=== PATIENT | female | born 1975 | race Caucasian/White ===

== ENCOUNTER 2016-09-10 13:06 | Emergency (ER) | payer MEDICAID ==
[2016-09-10 13:13] VITALS: BP 134/69
[2016-09-10 13:35] LABS: PH,URINE 5.5 PH (5.0-7.5)
--- NOTE | 2016-09-10 13:38 | ED Physician Documentation ---
PD HPI FEMALE - Stated complaint Stated Complaint: FEMALE - Chief complaint Chief Complaint: Abd Pain - History obtained from History obtained from: Patient - History of Present Illness Timing - onset: How many days ago (2) Timing - duration: Days (2) Timing - details: Gradual onset, Still present Associated symptoms: Back pain, Dysuria, Urinary frequency Contributing factors: No: Similar symptoms before: Diagnosis (UTI) Recently seen: Not recently seen - Additional information Additional information: healthy 40 y/o female with urinary frequency and dysuria. Review of Systems Constitutional: denies: Fever Eyes: denies: Decreased vision Ears: denies: Ear pain Nose: denies: Congestion Throat: denies: Sore throat Respiratory: denies: Cough GI: denies: Abdominal Pain, Nausea, Vomiting : reports: Dysuria, Frequency Musculoskeletal: reports: Back pain PD PAST MEDICAL HISTORY - Past Medical History Past Medical History: Yes Musculoskeletal: Scoliosis Other Past Medical History: kidney infection - Past Surgical History Past Surgical History: Yes Ortho: Spine surgery - Present Medications Home Medications: Ambulatory Orders Medication Instructions Recorded Confirmed Phenazopyridine [Pyridium] 200 mg PO TID #10 tablet 09/10/16 Sulfamethoxazole/Trimethoprim 1 each PO BID #10 tablet 09/10/16 [Sulfamethoxazole-Tmp Ds Tablet] - Allergies Allergies/Adverse Reactions: Allergies Allergy/AdvReac Type Severity Reaction Status Date / Time No Known Drug Allergies Allergy Verified 09/10/16 13:44 - Social History Does the pt smoke?: No Smoking Status: Never smoker Does the pt drink ETOH?: Yes Does the pt have substance abuse?: No - Immunizations Immunizations are current?: Yes - POLST Patient has POLST: No PD ED PE NORMAL - Vitals Vital signs reviewed: Yes (normal ) - General General: Alert and oriented X 3, No acute distress, Well developed/nourished - HEENT HEENT: Atraumatic, PERRL - Respiratory Respiratory: No respiratory distress - Back Back: No CVA TTP, No spinal TTP - Derm Derm: Normal color, Warm and dry, No rash - Extremities Extremities: No deformity, No edema - Neuro Neuro: No motor deficit, No sensory deficit - Psych Psych: Normal mood, Normal affect Results - Vitals Vitals: Vital Signs - 24 hr 09/10/16 13:09 Temperature 36.6 C Heart Rate 95 Respiratory 18 Rate Blood Pressure 134/69 H O2 Saturation 100 Oxygen O2 Source Room air - Labs Labs: Laboratory Tests 09/10/16 09/10/16 13:17 13:17 Urine Color YELLOW Urine Clarity CLOUDY Urine pH 5.5 Ur Specific [place] >=1.030 H >=1.030 H Urine Protein 30 H Urine Glucose (UA) NEGATIVE Urine Ketones NEGATIVE Urine Occult Blood LARGE H Urine Nitrite NEGATIVE Urine Bilirubin NEGATIVE Urine Urobilinogen 0.2 (NORMAL) Ur Leukocyte Esterase SMALL H Urine RBC TNTC H Urine WBC >25 H Ur Squamous Epith Cells MOD Squamous H Urine Bacteria Moderate H Urine Mucus Moderate Strands Ur Microscopic Review INDICATED Urine Culture Comments NOT INDICATED Urine HCG, Qual NEGATIVE PD MEDICAL DECISION MAKING - ED course Complexity details: reviewed results, re-evaluated patient, considered differential, d/w patient ED course: 40 y/o female with a UTI without fever or vomiting does not have CVA tenderness Departure - Departure Disposition: 01 Home, Self Care Clinical Impression: Urinary tract infection Qualifiers: Urinary tract infection type: acute cystitis Hematuria presence: with hematuria Qualified Code(s): N30.01 - Acute cystitis with hematuria Instructions: ED UTI Cystitis Female Follow-Up: [facility] [Provider Group] Prescriptions: Phenazopyridine [Pyridium] 200 mg PO TID #10 tablet Sulfamethoxazole/Trimethoprim [Sulfamethoxazole-Tmp Ds Tablet] 1 each PO BID # 10 tablet Discharge Date/Time: 09/10/16 14:05
[2016-09-10 13:41] LABS: BILIRUBIN,URINE NEGATIVE (NEGATIVE); UA w/ MICROSCOPIC CHARGE YES
[2016-09-10 13:53] LABS: HCG UR QUAL NEGATIVE
[2016-09-10 13:54] LABS: UR CULTURE IF IND NOT INDICATED; WBC,URINE >25 /HPF (0-5)
== END 2016-09-10 14:05 | disposition home or self-care (01) ==
LOC: ED 13:06
DX: N30.01 Acute cystitis with hematuria (principal)
CPT/HCPCS: 81001; 81003; 81025; 87086; 99283

== ENCOUNTER 2017-02-06 11:31 | Outpatient (CLI) | payer MEDICAID ==
[2017-02-06 19:32] LABS: BASOPHILS % (AUTO) 0.7 %; EOSINOPHILS # (AUTO) 0.1 10^3/uL (0.0-0.7); EOSINOPHILS % (AUTO) 2.6 %; HCT - HEMATOCRIT 42.9 % (37.0-47.0); HGB - HEMOGLOBIN 14.2 g/dL (12.0-16.0); LYMPHOCYTES # (AUTO) 1.5 10^3/uL (1.5-3.5); LYMPHOCYTES % (AUTO) 40.7 %; MEAN CORPUSCULAR HGB CONC 33.1 g/dL (32.0-36.0); MEAN CORPUSCULAR VOLUME 93.9 fL (81.0-99.0); MEAN PLATELET VOLUME 9.2 fL (7.9-10.8); MONOCYTES # (AUTO) 0.3 10^3/uL (0.0-1.0); MONOCYTES % (AUTO) 7.8 %; NEUTROPHILS # (AUTO) 1.8 10^3/uL (1.5-6.6); NEUTROPHILS % (AUTO) 48.2 %; RED BLOOD COUNT 4.57 10^6/uL (4.20-5.40); RED CELL DISTRIBUTION WIDTH 12.6 % (12.0-15.0); UNCORRECTED WHITE BLOOD COUNT 3.7 x10^3/uL; WHITE BLOOD COUNT 3.7 x10^3/uL (4.8-10.8)
[2017-02-06 19:39] LABS: ALBUMIN/GLOBULIN RATIO 1.6 (1.0-2.2); BILIRUBIN,TOTAL 0.8 mg/dL (0.2-1.0); BUN - BLOOD UREA NITROGEN 12 mg/dL (6-20); CALCIUM 9.1 mg/dL (8.5-10.3); CARBON DIOXIDE - CO2 28 mmol/L (21-32); CHLORIDE 102 mmol/L (101-111); CHOL/HDL RATIO 3.3 (<4.4); CHOLESTEROL 209 mg/dL; CREATININE 0.7 mg/dL (0.4-1.0); GFR - MDRD 93 (>89); GLUCOSE 89 mg/dL (70-100); HDL CHOLESTEROL 64 mg/dL; SODIUM 137 mmol/L (135-145); TOTAL PROTEIN 7.4 g/dL (6.7-8.2); TRIGLYCERIDES 68 mg/dL; VLDL CHOLESTEROL 14 mg/dL
[2017-02-06 19:47] LABS: THYROID STIMULATING HORMONE 7.11 uIU/mL (0.34-5.60)
== END 2017-02-06 11:32 | disposition home or self-care (01) ==
LOC: LAB.N 11:31
PROVIDERS: ATTEND Nurse Practitioner Gerontology
DX: Z13.9 Encounter for screening, unspecified (principal)
CPT/HCPCS: 36415; 80053; 80061; 84439; 84443; 85025

== ENCOUNTER 2017-03-05 00:40 | Emergency (ER) | payer MEDICAID ==
[2017-03-05 01:16] LABS: BASOPHILS % (AUTO) 0.7 %; EOSINOPHILS # (AUTO) 0.3 10^3/uL (0.0-0.7); EOSINOPHILS % (AUTO) 4.2 %; HCT - HEMATOCRIT 41.1 % (37.0-47.0); LYMPHOCYTES # (AUTO) 3.1 10^3/uL (1.5-3.5); LYMPHOCYTES % (AUTO) 50.5 %; MEAN CORPUSCULAR HEMOGLOBIN 31.6 pg (27.0-31.0); MEAN CORPUSCULAR HGB CONC 34.1 g/dL (32.0-36.0); MEAN CORPUSCULAR VOLUME 92.9 fL (81.0-99.0); MEAN PLATELET VOLUME 8.3 fL (7.9-10.8); MONOCYTES # (AUTO) 0.8 10^3/uL (0.0-1.0); MONOCYTES % (AUTO) 12.3 %; NEUTROPHILS % (AUTO) 32.3 %; RED BLOOD COUNT 4.43 10^6/uL (4.20-5.40); RED CELL DISTRIBUTION WIDTH 12.5 % (12.0-15.0); UNCORRECTED WHITE BLOOD COUNT 6.1 x10^3/uL; WHITE BLOOD COUNT 6.1 x10^3/uL (4.8-10.8)
[2017-03-05 01:24] LABS: HCG UR QUAL NEGATIVE
[2017-03-05 01:26] LABS: BILIRUBIN,URINE NEGATIVE (NEGATIVE); UA CHARGE (STRIP ONLY) YES; UR CULTURE IF IND NOT INDICATED
[2017-03-05 01:26] LABS: ALBUMIN/GLOBULIN RATIO 1.3 (1.0-2.2); BILIRUBIN,TOTAL 0.9 mg/dL (0.2-1.0); CALCIUM 8.8 mg/dL (8.5-10.3); CREATININE 0.8 mg/dL (0.4-1.0); POTASSIUM 3.1 mmol/L (3.5-5.0); TOTAL PROTEIN 7.2 g/dL (6.7-8.2)
[2017-03-05] MEDS ORDERED: FAMOTIDINE 20 MG/2 ML VIAL IVP STA (01:31)
[2017-03-05] MEDS ORDERED: SODIUM CHLORIDE 0.9% 1,000 ML IV ONE (01:31)
[2017-03-05] MEDS ORDERED: ONDANSETRON 4 MG/2 ML VIAL IVP STA (01:31)
[2017-03-05] MEDS ORDERED: ONDANSETRON 4 MG/2 ML VIAL ONE (01:39)
[2017-03-05] MEDS ORDERED: FAMOTIDINE 20 MG/2 ML VIAL ONE (01:40)
[2017-03-05] MEDS ORDERED: DICYCLOMINE 10 MG CAPSULE PO STA (02:02)
[2017-03-05] MEDS ORDERED: LIDOCAINE VISCOUS 2% 15 ML UDC MM STA (02:02)
[2017-03-05] MEDS ORDERED: LIDOCAINE VISCOUS 2% 15 ML UDC MM ONE (02:13)
[2017-03-05] MEDS ORDERED: DICYCLOMINE 10 MG CAPSULE PO ONE (02:13)
--- NOTE | 2017-03-05 02:13 | ED Physician Documentation ---
PD HPI ABD PAIN - Stated complaint Stated Complaint: ABD PX - Chief complaint Chief Complaint: Abd Pain - History obtained from History obtained from: Patient - History of Present Illness Timing - onset: Today Timing - details: Abrupt onset, Still present Quality: Cramping, Aching Location: All over / everywhere, Epigastric Associated symptoms: No: Fever, Nausea, Vomiting, Diarrhea, Constipation Similar symptoms before: Has not had sx before Recently seen: Not recently seen - Additional information Additional information: Patient is a 41 year old female who is presenting to the emergency department for abdominal pain. patient states that she recently has been on antibiotics and just came back from [place]. Patient states that she was in bed when she developed abdominal pain. patient states that it started suddenly. Patient denies any other aggravating or alleviating factors. Patient states that she used to drink heavily but she slowed down about 8 months. ago. Review of Systems Constitutional: denies: Fever, Chills Eyes: denies: Decreased vision, Photophobia Ears: denies: Ear pain, Drainage/discharge Nose: denies: Rhinorrhea / runny nose, Congestion Throat: reports: Reviewed and negative Respiratory: denies: Dyspnea, Cough GI: reports: Abdominal Pain. denies: Abdominal Swelling, Nausea, Vomiting, Constipation, Diarrhea : denies: Dysuria, Frequency, Hesitancy, Hematuria, Discharge, Vaginal bleeding Skin: denies: Rash, Lesions, Abrasion (s) Musculoskeletal: denies: Neck pain, Back pain, Extremity pain Neurologic: denies: Generalized weakness, Focal weakness Immunocompromised: denies: Immunocompromised PD PAST MEDICAL HISTORY - Past Medical History Endocrine/Autoimmune: HyPOthyroidism Musculoskeletal: Scoliosis - Past Surgical History Past Surgical History: Yes Ortho: Spine surgery - Present Medications Home Medications: Ambulatory Orders Medication Instructions Recorded Confirmed Dicyclomine [Bentyl] 10 mg PO QID #20 capsule 03/05/17 Levothyroxine [Synthroid] 1 tab PO DAILY PM 03/05/17 03/05/17 Ondansetron Odt [Zofran] 4 mg TL Q6H PRN #14 tablet 03/05/17 - Allergies Allergies/Adverse Reactions: Allergies Allergy/AdvReac Type Severity Reaction Status Date / Time No Known Drug Allergies Allergy Verified 03/05/17 00:56 - Social History Does the pt smoke?: No Smoking Status: Never smoker Does the pt drink ETOH?: Yes Does the pt have substance abuse?: No - Immunizations Immunizations are current?: Yes - POLST Patient has POLST: No PD ED PE NORMAL - Vitals Vital signs reviewed: Yes - General General: Alert and oriented X 3, Well developed/nourished - HEENT HEENT: Atraumatic, Pharynx benign - Neck Neck: Supple, no meningeal sign - Cardiac Cardiac: RRR, No murmur - Respiratory Respiratory: No respiratory distress, Clear bilaterally - Abdomen Abdomen: Soft, Non distended - Derm Derm: Normal color, Warm and dry, No rash - Extremities Extremities: No deformity, No tenderness to palpate, No edema - Neuro Neuro: Alert and oriented X 3, No motor deficit, No sensory deficit - Psych Psych: Normal mood PD ED PE EXPANDED - HEENT HEENT: Dry mucous membranes - Abdomen Abdomen: Tender to palpation, Generalized/diffuse. No: Rebound, Guarding Results - Vitals Vitals: Vital Signs - 24 hr 03/05/17 00:54 Temperature 35.9 C L Heart Rate 69 Respiratory 22 Rate Blood Pressure 111/67 O2 Saturation 100 Oxygen O2 Source Room air - Labs Labs: Laboratory Tests 03/05/17 03/05/17 03/05/17 01:00 01:00 01:05 WBC 6.1 RBC 4.43 Hgb 14.0 Hct 41.1 MCV 92.9 MCH 31.6 H MCHC 34.1 RDW 12.5 Plt Count 179 MPV 8.3 Neut # 2.0 Lymph # 3.1 [place] # 0.8 Eos # 0.3 Baso # 0.0 Absolute Nucleated RBC 0.00 Nucleated RBC % 0.0 Sodium Potassium Chloride Carbon Dioxide Anion Gap BUN Creatinine Estimated GFR (MDRD) Glucose Calcium Total Bilirubin AST ALT Alkaline Phosphatase Total Protein Albumin Globulin Albumin/Globulin Ratio Lipase Urine Color YELLOW Urine Clarity CLEAR Urine pH 6.0 Ur Specific [place] 1.020 1.020 Urine Protein NEGATIVE Urine Glucose (UA) NEGATIVE Urine Ketones NEGATIVE Urine Occult Blood TRACE-LYSED Urine Nitrite NEGATIVE Urine Bilirubin NEGATIVE Urine Urobilinogen 0.2 (NORMAL) Ur Leukocyte Esterase NEGATIVE Ur Microscopic Review NOT INDICATED Urine Culture Comments NOT INDICATED Urine HCG, Qual NEGATIVE 03/05/17 01:05 WBC RBC Hgb Hct MCV MCH MCHC RDW Plt Count MPV Neut # Lymph # [place] # Eos # Baso # Absolute Nucleated RBC Nucleated RBC % Sodium 138 Potassium 3.1 L Chloride 102 Carbon Dioxide 27 Anion Gap 9.0 BUN 14 Creatinine 0.8 Estimated GFR (MDRD) 79 L Glucose 170 H Calcium 8.8 Total Bilirubin 0.9 AST 52 H ALT 31 Alkaline Phosphatase 73 Total Protein 7.2 Albumin 4.1 Globulin 3.1 Albumin/Globulin Ratio 1.3 Lipase 24 Urine Color Urine Clarity Urine pH Ur Specific [place] Urine Protein Urine Glucose (UA) Urine Ketones Urine Occult Blood Urine Nitrite Urine Bilirubin Urine Urobilinogen Ur Leukocyte Esterase Ur Microscopic Review Urine Culture Comments Urine HCG, Qual PD MEDICAL DECISION MAKING - ED course Complexity details: reviewed old records, reviewed results, re-evaluated patient , considered differential, d/w patient ED course: Patient was seen and examined at bedside. IV access was gained and labs were drawn. Patient was treated with zofran, pepcid and IV fluids. Patient responded well to the therapy. Patient's diagnostics were within normal limits. Patient was treated with bentyl, and viscous lidocaine. The risk/ benefit of CT was discussed with the patient and it was decided to not do it at this time. Patient required no further work up and was stable for discharge with outpatient follow up. Departure - Departure Disposition: Home, Self Care Condition: Good Instructions: ED Abdominal Pain Unkn Cause Follow-Up: Christine Buchanan ARNP [Primary Care Provider] - Within 3 Days Prescriptions: Dicyclomine [Bentyl] 10 mg PO QID #20 capsule Ondansetron Odt [Zofran] 4 mg TL Q6H PRN #14 tablet PRN Reason: Nausea / Vomiting Comments: Your diagnostics today were within normal limits. It is difficult to say what is causing your pain exactly. You should make sure you stay well hydrated. You can take zofran for nausea as needed and motrin, tylenol and bentyl for pain. You can also try maalox for gas, or acid reflux. If your symptoms persist for more than the next few days you should follow up with your pmd or return to the emergency department for further evaluation and care.
[2017-03-05 02:52] VITALS: BP 110/64
== END 2017-03-05 02:50 | disposition home or self-care (01) ==
LOC: ED 00:40
DX: R10.84 Generalized abdominal pain (principal); E03.9 Hypothyroidism, unspecified
CPT/HCPCS: 36415; 80053; 81003; 81025; 83690; 85025; 96361; 96374; 96375; 99284; A9270; 81001; 87086

== ENCOUNTER 2017-03-27 08:00 | Outpatient (CLI) | payer MEDICAID | END 2017-03-27 08:01 | disposition home or self-care (01) | LOC: LAB.N 08:00 | PROVIDERS: ATTEND Nurse Practitioner Gerontology | DX: E03.9 Hypothyroidism, unspecified (principal) | CPT/HCPCS: 36415; 84443 ==

== ENCOUNTER 2017-05-08 15:52 | Outpatient (CLI) | payer MEDICAID ==
[2017-05-08 19:17] LABS: BASOPHILS % (AUTO) 0.5 %; EOSINOPHILS # (AUTO) 0.1 10^3/uL (0.0-0.7); EOSINOPHILS % (AUTO) 1.3 %; HGB - HEMOGLOBIN 14.3 g/dL (12.0-16.0); LYMPHOCYTES # (AUTO) 1.6 10^3/uL (1.5-3.5); LYMPHOCYTES % (AUTO) 32.2 %; MEAN CORPUSCULAR HEMOGLOBIN 31.2 pg (27.0-31.0); MEAN CORPUSCULAR HGB CONC 33.6 g/dL (32.0-36.0); MEAN PLATELET VOLUME 9.2 fL (7.9-10.8); MONOCYTES # (AUTO) 0.4 10^3/uL (0.0-1.0); MONOCYTES % (AUTO) 7.3 %; NEUTROPHILS # (AUTO) 2.9 10^3/uL (1.5-6.6); NEUTROPHILS % (AUTO) 58.7 %; PLT - PLATELET COUNT 197 10^3/uL (130-450); RED BLOOD COUNT 4.57 10^6/uL (4.20-5.40); RED CELL DISTRIBUTION WIDTH 12.6 % (12.0-15.0); WHITE BLOOD COUNT 4.9 x10^3/uL (4.8-10.8)
[2017-05-08 19:29] LABS: ALBUMIN 4.4 g/dL (3.2-5.5); ALBUMIN/GLOBULIN RATIO 1.5 (1.0-2.2); BILIRUBIN,TOTAL 0.7 mg/dL (0.2-1.0); CALCIUM 8.7 mg/dL (8.5-10.3); CREATININE 0.8 mg/dL (0.4-1.0); TOTAL PROTEIN 7.4 g/dL (6.7-8.2)
[2017-05-08 19:39] LABS: FOLATE 15.58 ng/mL (5.90 - >24.8)
== END 2017-05-08 15:53 | disposition home or self-care (01) ==
LOC: LAB.N 15:52
PROVIDERS: ATTEND Nurse Practitioner Gerontology
DX: D64.9 Anemia, unspecified (principal); R53.83 Other fatigue; N39.0 Urinary tract infection, site not specified
CPT/HCPCS: 36415; 80053; 82607; 82728; 82746; 83540; 84466; 85025; 87086

== ENCOUNTER 2017-05-18 14:12 | Emergency (ER) | payer MEDICAID ==
[2017-05-18 14:42] LABS: BASOPHILS % (AUTO) 0.4 %; EOSINOPHILS # (AUTO) 0.1 10^3/uL (0.0-0.7); EOSINOPHILS % (AUTO) 1.4 %; HGB - HEMOGLOBIN 15.1 g/dL (12.0-16.0); LYMPHOCYTES # (AUTO) 2.3 10^3/uL (1.5-3.5); MEAN CORPUSCULAR HEMOGLOBIN 30.6 pg (27.0-31.0); MEAN CORPUSCULAR HGB CONC 33.3 g/dL (32.0-36.0); MEAN CORPUSCULAR VOLUME 91.7 fL (81.0-99.0); MEAN PLATELET VOLUME 8.4 fL (7.9-10.8); MONOCYTES # (AUTO) 0.4 10^3/uL (0.0-1.0); MONOCYTES % (AUTO) 7.1 %; NEUTROPHILS # (AUTO) 3.5 10^3/uL (1.5-6.6); NEUTROPHILS % (AUTO) 55.1 %; PLT - PLATELET COUNT 232 10^3/uL (130-450); RED BLOOD COUNT 4.95 10^6/uL (4.20-5.40); RED CELL DISTRIBUTION WIDTH 12.5 % (12.0-15.0); WHITE BLOOD COUNT 6.3 x10^3/uL (4.8-10.8)
[2017-05-18] MEDS ORDERED: SODIUM CHLORIDE 0.9% 1,000 ML IV ONE (14:45)
[2017-05-18] MEDS ORDERED: KETOROLAC 60 MG/2 ML VIAL IVP STA (14:45)
--- NOTE | 2017-05-18 14:50 | ED Physician Documentation ---
History of Present Illness - Stated complaint Stated Complaint: SIDE PX/TIGHTNESS IN SHOULDERS - Chief complaint Chief Complaint: Cardiac - History obtained from History obtained from: Patient - History of Present Illness Timing: How many weeks ago (several) Pain level max: 8 Pain level now: 8 Improved by: nothing Worsened by: movement, palpation - Additonal information Additional information: Patient is a 41-year-old female who presents to the emergency department with multiple complaints, the first is generalized malaise for the past several weeks. She has also been feeling pain in her bilateral flank which she attributes to kidney pain. She is being worked up by her doctor for this. Has had reportedly normal labs and a negative urine culture. Scheduled for a renal ultrasound tomorrow. She is also complaining of occasional tightness across her shoulders as well as palpitations. Has seen cardiology and had a Holter monitor, informed that she has premature ventricular contractions. She does have a history of drug abuse including methamphetamine abuse, last use was 4 years ago. She also states she quit drinking alcohol approximately 9 months ago. Review of Systems Ten Systems: 10 systems reviewed and negative Constitutional: denies: Fever, Chills Ears: denies: Ear pain Nose: denies: Rhinorrhea / runny nose, Congestion Cardiac: reports: Palpitations Respiratory: denies: Cough, Wheezing GI: denies: Nausea, Vomiting, Diarrhea : reports: Dysuria (states has occasional bladder pain) Skin: denies: Rash Musculoskeletal: denies: Neck pain, Back pain Neurologic: denies: Headache PD PAST MEDICAL HISTORY - Past Medical History Past Medical History: Yes Endocrine/Autoimmune: HyPOthyroidism Musculoskeletal: Scoliosis - Past Surgical History Past Surgical History: Yes Ortho: Spine surgery - Present Medications Home Medications: Ambulatory Orders Medication Instructions Recorded Confirmed Dicyclomine [Bentyl] 10 mg PO QID #20 capsule 03/05/17 Levothyroxine [Synthroid] 1 tab PO DAILY PM 03/05/17 03/05/17 Ondansetron Odt [Zofran] 4 mg TL Q6H PRN #14 tablet 03/05/17 Meloxicam [Mobic] 7.5 mg PO BID PRN #20 tablet 05/18/17 Oxycodone HCl 5 - 10 mg PO Q6H PRN #14 tablet 05/18/17 - Allergies Allergies/Adverse Reactions: Allergies Allergy/AdvReac Type Severity Reaction Status Date / Time acetaminophen [From Vicodin] Allergy Unknown Verified 05/18/17 14:28 hydrocodone [From Vicodin] Allergy lethargic Verified 05/18/17 14:29 paroxetine [From Paxil] AdvReac unresponsiv Verified 05/18/17 14:29 e - Social History Does the pt smoke?: No Smoking Status: Never smoker Does the pt drink ETOH?: No Does the pt have substance abuse?: Yes Substance Use and Type: Meth - Immunizations Immunizations are current?: Yes - POLST Patient has POLST: No PD ED PE NORMAL - Vitals Vital signs reviewed: Yes - General General: Alert and oriented X 3, No acute distress, Well developed/nourished, Other (appears anxious) - HEENT HEENT: PERRL - Neck Neck: Supple, no meningeal sign - Cardiac Cardiac: RRR, Strong equal pulses - Respiratory Respiratory: No respiratory distress, Clear bilaterally - Abdomen Abdomen: Soft, Non distended, Other (TTP RUQ, equivocal almonte's) - Back Back: No CVA TTP, No spinal TTP - Derm Derm: Warm and dry, No rash - Extremities Extremities: No edema, No calf tenderness / cord - Neuro Neuro: Alert and oriented X 3 - Psych Psych: Other (anxious) Results - Vitals Vitals: Vital Signs - 24 hr 05/18/17 05/18/17 05/18/17 14:19 15:52 17:02 Temperature 36.5 C 36.4 C L Heart Rate 128 H 79 66 Respiratory 22 12 16 Rate Blood Pressure 123/87 H 106/72 96/55 L O2 Saturation 100 100 100 Oxygen O2 Source Room air - EKG (time done) 1422 Rate: Rate (enter#) (109) Rhythm: Sinus tachycardia, Other (PVC) [place]: Normal Intervals: Normal RI QRS: Normal Ischemia: Normal ST segments - Labs Labs: Laboratory Tests 05/18/17 05/18/17 05/18/17 14:23 14:30 14:30 WBC 6.3 RBC 4.95 Hgb 15.1 Hct 45.4 MCV 91.7 MCH 30.6 MCHC 33.3 RDW 12.5 Plt Count 232 MPV 8.4 Neut # 3.5 Lymph # 2.3 [place] # 0.4 Eos # 0.1 Baso # 0.0 Absolute Nucleated RBC 0.00 Nucleated RBC % 0.0 Sodium 136 Potassium 4.1 Chloride 102 Carbon Dioxide 26 Anion Gap 8.0 BUN 11 Creatinine 0.6 Estimated GFR (MDRD) 111 Glucose 113 H POC Whole Bld Glucose 103 H Calcium 8.9 Phosphorus Magnesium Total Bilirubin 0.9 AST 23 ALT 19 Alkaline Phosphatase 51 Troponin I Total Protein 8.0 Albumin 4.6 Globulin 3.4 Albumin/Globulin Ratio 1.4 Lipase 24 Urine Color Urine Clarity Urine pH Ur Specific [place] Urine Protein Urine Glucose (UA) Urine Ketones Urine Occult Blood Urine Nitrite Urine Bilirubin Urine Urobilinogen Ur Leukocyte Esterase Ur Microscopic Review Urine Culture Comments Urine HCG, Qual Urine Opiates Screen Ur Oxycodone Screen Urine Methadone Screen Ur Propoxyphene Screen Ur Barbiturates Screen Ur Tricyclics Screen Ur Phencyclidine Scrn Ur Amphetamine Screen U Methamphetamines Scrn U Benzodiazepines Scrn Urine Cocaine Screen U Cannabinoids Screen Ethyl Alcohol 05/18/17 05/18/17 05/18/17 14:30 14:30 15:05 WBC RBC Hgb Hct MCV MCH MCHC RDW Plt Count MPV Neut # Lymph # [place] # Eos # Baso # Absolute Nucleated RBC Nucleated RBC % Sodium Potassium Chloride Carbon Dioxide Anion Gap BUN Creatinine Estimated GFR (MDRD) Glucose POC Whole Bld Glucose Calcium Phosphorus 3.5 Magnesium 1.9 Total Bilirubin AST ALT Alkaline Phosphatase Troponin I < 0.04 Total Protein Albumin Globulin Albumin/Globulin Ratio Lipase Urine Color YELLOW Urine Clarity CLEAR Urine pH 6.0 Ur Specific [place] <=1.005 Urine Protein NEGATIVE Urine Glucose (UA) NEGATIVE Urine Ketones NEGATIVE Urine Occult Blood NEGATIVE Urine Nitrite NEGATIVE Urine Bilirubin NEGATIVE Urine Urobilinogen 0.2 (NORMAL) Ur Leukocyte Esterase NEGATIVE Ur Microscopic Review NOT INDICATED Urine Culture Comments NOT INDICATED Urine HCG, Qual Urine Opiates Screen Ur Oxycodone Screen Urine Methadone Screen Ur Propoxyphene Screen Ur Barbiturates Screen Ur Tricyclics Screen Ur Phencyclidine Scrn Ur Amphetamine Screen U Methamphetamines Scrn U Benzodiazepines Scrn Urine Cocaine Screen U Cannabinoids Screen Ethyl Alcohol < 5.0 05/18/17 05/18/17 15:05 15:05 WBC RBC Hgb Hct MCV MCH MCHC RDW Plt Count MPV Neut # Lymph # [place] # Eos # Baso # Absolute Nucleated RBC Nucleated RBC % Sodium Potassium Chloride Carbon Dioxide Anion Gap BUN Creatinine Estimated GFR (MDRD) Glucose POC Whole Bld Glucose Calcium Phosphorus Magnesium Total Bilirubin AST ALT Alkaline Phosphatase Troponin I Total Protein Albumin Globulin Albumin/Globulin Ratio Lipase Urine Color Urine Clarity Urine pH Ur Specific [place] <1.005 Urine Protein Urine Glucose (UA) Urine Ketones Urine Occult Blood Urine Nitrite Urine Bilirubin Urine Urobilinogen Ur Leukocyte Esterase Ur Microscopic Review Urine Culture Comments Urine HCG, Qual NEGATIVE Urine Opiates Screen NEGATIVE Ur Oxycodone Screen NEGATIVE Urine Methadone Screen NEGATIVE Ur Propoxyphene Screen NEGATIVE Ur Barbiturates Screen NEGATIVE Ur Tricyclics Screen NEGATIVE Ur Phencyclidine Scrn NEGATIVE Ur Amphetamine Screen NEGATIVE U Methamphetamines Scrn NEGATIVE U Benzodiazepines Scrn NEGATIVE Urine Cocaine Screen NEGATIVE U Cannabinoids Screen NEGATIVE Ethyl Alcohol - Rads (name of study) CT abd/pelvis Radiology: Prelim report reviewed, EMP read contemporaneously, See rad report ( Cholelithiasis. Overall moderate stool volume in the colon. No evidence of bowel obstruction. Normal appendix. Mild left adnexal varices) RUQ US Radiology: Prelim report reviewed, EMP read contemporaneously, See rad report ( Cholelithiasis without evidence of acute cholecystitis. Small liver cysts) PD MEDICAL DECISION MAKING - ED course Complexity details: reviewed results, re-evaluated patient, considered differential, d/w patient, d/w family ED course: Patient is a 41-year-old female who presents to the emergency department with what appears to be biliary colic. No evidence of acute cholecystitis. Pain well controlled. Tolerating p.o. well. We will have her follow-up as an outpatient with surgery for cholecystectomy. She is well-appearing, nontoxic. Afebrile. Patient and family counseled regarding signs and symptoms for which I believe and urgent re-evaluation would be necessary. Patient with good understanding of and agreement to plan and is comfortable going home at this time This document was made in part using voice recognition software. While efforts are made to proofread this document, sound alike and grammatical errors may occur. Given her history of multiple addictions, we discussed at length the use of narcotics, she has never had a problem with opiates in the past and therefore will prescribe a small amount for her. She was counseled regarding the addictive potential of these medications. Departure - Departure Disposition: 01 Home, Self Care Clinical Impression: Biliary colic Condition: Good Instructions: ED [place] W Biliary Colic Follow-Up: Christine Buchanan ARNP [Primary Care Provider] - Alec Dinero MD [Provider Admit Priv/Credential] - TORIN DOWNS MD [Provider Admit Priv/Credential] - Prescriptions: Meloxicam [Mobic] 7.5 mg PO BID PRN #20 tablet PRN Reason: Pain Oxycodone HCl 5 - 10 mg PO Q6H PRN #14 tablet PRN Reason: Abdominal Pain Comments: You need to have your gallbladder removed. You may need a referral from your doctor for this. Return if you have worsening pain, vomiting, fevers or other new or worsening symptoms. Do not drink alcohol or drive while on narcotic pain medicine. Note that many narcotic pain relievers also contain tylenol/acetaminophen. Please ensure that your total dose of acetaminophen from all sources does not exceed 3 grams (3000mg) per day. You may constipated on this medication, take a stool softener such as "Colace" twice a day while you are on it. Also recommend a [id number] laxative such as senna or MiraLAX any day that you do not have a bowel movement. If you received narcotic pain medication in the emergency department, do not drive or operate machinery for the next 24 hours. Discharge Date/Time: 05/18/17 17:27
[2017-05-18 14:53] LABS: ALBUMIN 4.6 g/dL (3.2-5.5); ALBUMIN/GLOBULIN RATIO 1.4 (1.0-2.2); BILIRUBIN,TOTAL 0.9 mg/dL (0.2-1.0); CALCIUM 8.9 mg/dL (8.5-10.3); CREATININE 0.6 mg/dL (0.4-1.0)
[2017-05-18 15:07] LABS: MAGNESIUM 1.9 mg/dL (1.7-2.8); PHOSPHORUS 3.5 mg/dL (2.5-4.6)
[2017-05-18 15:14] LABS: MUDS CUTOFF CONCENTRATIONS CUTOFF CONC BELOW:
[2017-05-18] MEDS ORDERED: IOPAMIDOL-300 100 ML VIAL ONE (15:14)
[2017-05-18 15:16] LABS: BILIRUBIN,URINE NEGATIVE (NEGATIVE); GLUCOSE, URINE (UA) NEGATIVE (NEGATIVE); KETONES,URINE (UA) NEGATIVE (NEGATIVE); LEUKOCYTE ESTERASE, URINE NEGATIVE (NEGATIVE); NITRITE,URINE NEGATIVE (NEGATIVE); OCCULT BLOOD,URINE NEGATIVE (NEGATIVE); PROTEIN,URINE NEGATIVE (NEGATIVE); UROBILINOGEN,URINE 0.2 (NORMAL) E.U./dL (NORMAL)
[2017-05-18 15:17] LABS: CLARITY,URINE CLEAR (CLEAR)
[2017-05-18 15:19] LABS: HCG UR QUAL NEGATIVE
[2017-05-18 15:31] LABS: AMPHETAMINE SCREEN,URINE NEGATIVE (NEGATIVE); BENZODIAZEPINES SCREEN, URINE NEGATIVE (NEGATIVE); COCAINE SCREEN URINE NEGATIVE (NEGATIVE); METHADONE SCREEN, URINE NEGATIVE (NEGATIVE); METHAMPHETAMINES SCREEN, URINE NEGATIVE (NEGATIVE); OPIATE SCREEN, URINE NEGATIVE (NEGATIVE); OXYCODONE SCREEN, URINE NEGATIVE (NEGATIVE); PROPOXYPHENE SCREEN, URINE NEGATIVE (NEGATIVE); TRICYCLIC ANTIDEPRESSANT,URINE NEGATIVE (NEGATIVE)
[2017-05-18] MEDS ORDERED: IOPAMIDOL-300 100 ML VIAL IVP ONE (15:50)
--- NOTE | 2017-05-18 16:02 | CT Report ---
EXAM: CT ABDOMEN AND PELVIS EXAM DATE: 05/18/2017 03:49 PM. CLINICAL HISTORY: Bilateral flank pain. Left chest pain. COMPARISONS: None. TECHNIQUE: Routine helical CT imaging was performed through the abdomen and pelvis. IV contrast: ISOV UE 300 80mL. Enteric contrast: No. Reconstructions: Coronal and sagittal. In accordance with CT protocol optimization, one or more of the following dose reduction techniques w ere utilized for this exam: automated exposure control, adjustment of mA and/or KV based on patient s ize, or use of iterative reconstructive technique. FINDINGS: Lung Bases: No acute findings. Left breast implant. Liver: There appear to be a couple of small probable liver cysts in the right hepatic lobe, largest s een at the inferior aspect measuring 7 mm. Gallbladder/Bile Ducts: Multiple gallstones. The 2 largest gallstones each measuring 1.6 cm. No bile duct dilatation. Spleen: Normal. Pancreas: Normal. Adrenal Glands: Normal. Kidneys: Normal. No masses or hydronephrosis. Peritoneal Cavity/Bowel: Overall moderate stool volume in the colon. No evidence for bowel obstructio n. Normal appendix. No free fluid or free air. No abscess. Pelvic Organs: Mild left adnexal varices. The uterus is retroverted. The bladder is unremarkable. No bladder or ureteral calculi. Vasculature: No acute findings. Bones: No acute bone findings. Thoracolumbar hardware. IMPRESSION: 1. Cholelithiasis. 2. Overall moderate stool volume in the colon. No evidence for bowel obstruction. Normal appendix. 3. Mild left adnexal varices. [facility] Referring Provider Line: [phone] SITE ID: [id number]
[2017-05-18 17:04] VITALS: BP 96/55
[2017-05-18] MEDS ORDERED: oxyCODONE 5 MG TABLET PO STA (17:15)
--- NOTE | 2017-05-18 17:26 | Ultrasound Preliminary Report ---
Exam: US ABDOMEN LIMITED IMPRESSION: 1. Cholelithiasis without evidence for acute cholecystitis. 2. Couple of small liver cysts. [facility] SITE ID: [id number]
--- NOTE | 2017-05-18 17:26 | Ultrasound Report ---
EXAM: ABDOMEN ULTRASOUND LIMITED, RUQ EXAM DATE: 05/18/2017 04:25 PM. CLINICAL HISTORY: Right upper quadrant pain COMPARISON: CT abdomen and pelvis 05/18/2017. TECHNIQUE: Real-time scanning was performed with static images obtained. FINDINGS: Liver: Normal in size and echotexture. 8 x 6 x 7 mm cyst in the inferior aspect of the right hepatic lobe. 5 x 4 x 6 mm cyst at the superior aspect of the right hepatic lobe. Liver length 15.3 cm. Main portal vein flow: Hepatopetal. Gallbladder: The gallbladder wall measures 2.2 mm. No gallbladder wall thickening or pericholecystic fluid. Negative sonographic Bunch sign. Patient on pain medication. Multiple gallstones are present, the 2 largest each measure 1.6 cm. The gallbladder appears partially contracted, patient ate at 12:3 0 PM. Biliary System: Common duct measures 4.7 mm. No intrahepatic or extrahepatic ductal dilatation. Other: Right kidney measures 9.5 cm in length. There is limited visualization. No definite hydronephr osis seen. IMPRESSION: 1. Cholelithiasis without evidence for acute cholecystitis. 2. Couple of small liver cysts. [facility] Referring Provider Line: [phone] SITE ID: [id number]
== END 2017-05-18 17:27 | disposition home or self-care (01) ==
LOC: ED 14:12
DX: K80.20 Calculus of gallbladder without cholecystitis without obstruction (principal); K76.89 Other specified diseases of liver; E03.9 Hypothyroidism, unspecified
CPT/HCPCS: 36415; 74177; 76705; 80053; 80306; 80320; 81003; 81025; 83690; 83735; 84100; 84484; 85025; 93005; 96361; 96374; 99284; A9270; Q9967; 81001; 87086

== ENCOUNTER 2017-05-21 08:27 | Outpatient (CLI) | payer MEDICAID | END 2017-05-21 08:28 | disposition home or self-care (01) | LOC: DI 08:27 | PROVIDERS: ATTEND Internal Medicine Cardiovascular Disease | DX: R00.2 Palpitations (principal) | CPT/HCPCS: 93306 ==

== ENCOUNTER 2017-06-10 09:00 | Emergency (ER) | payer MEDICAID ==
--- NOTE | 2017-06-10 09:31 | ED Physician Documentation ---
PD HPI ABD PAIN - Stated complaint Stated Complaint: SIDE PX - Chief complaint Chief Complaint: Abd Pain - History obtained from History obtained from: Patient - History of Present Illness Timing - onset: Today, How many weeks ago (has had some pains intermittently for few weeks due to gall stones. Has surgery planned for June 19. Had worse pain today. Has been eating low fat diet.) Timing - duration: Hours, Weeks Quality: Cramping, Aching, Pain Location: RUQ Radiation: Upper back Worsened by: Eating Associated symptoms: Nausea, Diarrhea (loose stools for couple weeks.). No: Fever, Vomiting, Constipation Similar symptoms before: Diagnosis Recently seen: Clinic (Seen Dr. Boothe and has surgery scheduled for June 19.), Emergency Dept Review of Systems Constitutional: denies: Fever, Chills, Myalgias Nose: denies: Rhinorrhea / runny nose, Congestion Throat: denies: Sore throat Respiratory: denies: Cough GI: reports: Abdominal Pain, Nausea, Diarrhea. denies: Vomiting, Constipation, Hematemesis, Bloody / black stool : denies: Dysuria PD PAST MEDICAL HISTORY - Past Medical History Endocrine/Autoimmune: HyPOthyroidism GI: Other (gallstones) Musculoskeletal: Scoliosis - Past Surgical History Past Surgical History: Yes Ortho: Spine surgery - Present Medications Home Medications: Ambulatory Orders Medication Instructions Recorded Confirmed Levothyroxine [Synthroid] 1 tab PO DAILY PM 03/05/17 03/05/17 Dicyclomine [Bentyl] 10 mg PO QID PRN #20 capsule 06/10/17 Naproxen 375 mg PO BID #15 tablet 06/10/17 Ondansetron Odt [Zofran] 4 mg TL Q6H PRN #15 tablet 06/10/17 Oxycodone HCl/Acetaminophen 1 each PO Q6H PRN #20 tablet 06/10/17 [Percocet 5-325 mg Tablet] - Allergies Allergies/Adverse Reactions: Allergies Allergy/AdvReac Type Severity Reaction Status Date / Time acetaminophen [From Vicodin] Allergy Unknown Verified 06/10/17 09:07 hydrocodone [From Vicodin] Allergy lethargic Verified 06/10/17 09:07 paroxetine [From Paxil] AdvReac unresponsiv Verified 06/10/17 09:07 e - Social History Does the pt smoke?: No Smoking Status: Never smoker Does the pt drink ETOH?: No Does the pt have substance abuse?: Yes - Immunizations Immunizations are current?: Yes - POLST Patient has POLST: No PD ED PE NORMAL - Vitals Vital signs reviewed: Yes - General General: Alert and oriented X 3, Well developed/nourished, Other (appears in pain, holding RUQ. ) - HEENT HEENT: PERRL (nonicteric), Pharynx benign - Neck Neck: Supple, no meningeal sign, No adenopathy - Cardiac Cardiac: RRR, No murmur - Respiratory Respiratory: Clear bilaterally - Abdomen Abdomen: Normal bowel sounds, Non distended, No organomegaly, Other (tender RUQ with local guarding. No pecussion nor rebound. ) - Female Female : Deferred - Rectal Rectal: Deferred - Back Back: No CVA TTP - Derm Derm: Normal color, Warm and dry - Neuro Neuro: Alert and oriented X 3, No motor deficit, Normal speech Results - Vitals Vitals: Vital Signs - 24 hr 06/10/17 06/10/17 10:42 11:58 Temperature 36.9 C Heart Rate 66 65 Respiratory 15 16 Rate Blood Pressure 104/61 105/57 L O2 Saturation 98 100 Oxygen O2 Source Room air - Labs Labs: Laboratory Tests 06/10/17 06/10/17 06/10/17 09:19 09:19 09:37 WBC 4.2 L RBC 4.80 Hgb 14.8 Hct 43.2 MCV 90.2 MCH 30.9 MCHC 34.3 RDW 12.7 Plt Count 185 MPV 8.5 Neut # 1.9 Lymph # 1.8 [place] # 0.4 Eos # 0.1 Baso # 0.0 Absolute Nucleated RBC 0.00 Nucleated RBC % 0.1 Sodium Potassium Chloride Carbon Dioxide Anion Gap BUN Creatinine Estimated GFR (MDRD) Glucose Calcium Total Bilirubin AST ALT Alkaline Phosphatase Total Protein Albumin Globulin Albumin/Globulin Ratio Lipase Urine Color YELLOW Urine Clarity CLEAR Urine pH 6.0 Ur Specific [place] 1.025 1.025 Urine Protein NEGATIVE Urine Glucose (UA) NEGATIVE Urine Ketones NEGATIVE Urine Occult Blood NEGATIVE Urine Nitrite NEGATIVE Urine Bilirubin NEGATIVE Urine Urobilinogen 0.2 (NORMAL) Ur Leukocyte Esterase NEGATIVE Ur Microscopic Review NOT INDICATED Urine Culture Comments NOT INDICATED Urine HCG, Qual NEGATIVE 06/10/17 09:37 WBC RBC Hgb Hct MCV MCH MCHC RDW Plt Count MPV Neut # Lymph # [place] # Eos # Baso # Absolute Nucleated RBC Nucleated RBC % Sodium 139 Potassium 4.0 Chloride 101 Carbon Dioxide 27 Anion Gap 11.0 BUN 12 Creatinine 0.6 Estimated GFR (MDRD) 111 Glucose 94 Calcium 9.4 Total Bilirubin 1.2 H AST 21 ALT 13 Alkaline Phosphatase 51 Total Protein 7.7 Albumin 4.4 Globulin 3.3 Albumin/Globulin Ratio 1.3 Lipase 21 L Urine Color Urine Clarity Urine pH Ur Specific [place] Urine Protein Urine Glucose (UA) Urine Ketones Urine Occult Blood Urine Nitrite Urine Bilirubin Urine Urobilinogen Ur Leukocyte Esterase Ur Microscopic Review Urine Culture Comments Urine HCG, Qual - Rads (name of study) RUQ U S Radiology: Prelim report reviewed (mobile stones and sludge. CBD and GB wall not thickened. ) PD MEDICAL DECISION MAKING - ED course Complexity details: reviewed results (no signs of acute cholecystitis - stones and sludge as previously known. Pain improved with meds. ), considered differential, d/w patient Departure - Departure Disposition: Home, Self Care Clinical Impression: Right upper quadrant abdominal pain, Biliary colic Condition: Stable Record reviewed to determine appropriate education?: Yes Instructions: ED Gallstone W Biliary Colic Follow-Up: Christine Buchanan ARNP [Primary Care Provider] - TORIN BOOTHE MD [Provider Admit Priv/Credential] - Prescriptions: Dicyclomine [Bentyl] 10 mg PO QID PRN #20 capsule PRN Reason: Spasms Naproxen 375 mg PO BID #15 tablet Ondansetron Odt [Zofran] 4 mg TL Q6H PRN #15 tablet PRN Reason: Nausea / Vomiting Oxycodone HCl/Acetaminophen [Percocet 5-325 mg Tablet] 1 each PO Q6H PRN #20 tablet PRN Reason: Pain Comments: Drink lots of fluids. Low-fat diet. Naproxen twice daily for the next 5-7 days as an anti-inflammatory. Do not take it for 05-6 days before surgery. Use dicyclomine antispasmodic 3 or 4 times a day as needed for pains. Add Percocet if needed. Call Dr. Boothe if pain is continuing at a higher level, otherwise plan for the gallbladder surgery on the fifth as scheduled. Return to the ER if worse again. Discharge Date/Time: 06/10/17 12:13
[2017-06-10 09:41] LABS: BILIRUBIN,URINE NEGATIVE (NEGATIVE); GLUCOSE, URINE (UA) NEGATIVE (NEGATIVE); KETONES,URINE (UA) NEGATIVE (NEGATIVE); LEUKOCYTE ESTERASE, URINE NEGATIVE (NEGATIVE); NITRITE,URINE NEGATIVE (NEGATIVE); OCCULT BLOOD,URINE NEGATIVE (NEGATIVE); PROTEIN,URINE NEGATIVE (NEGATIVE); UROBILINOGEN,URINE 0.2 (NORMAL) E.U./dL (NORMAL)
[2017-06-10 09:43] LABS: CLARITY,URINE CLEAR (CLEAR)
[2017-06-10 09:44] LABS: HCG UR QUAL NEGATIVE
[2017-06-10 09:45] LABS: BASOPHILS % (AUTO) 0.6 %; EOSINOPHILS # (AUTO) 0.1 10^3/uL (0.0-0.7); EOSINOPHILS % (AUTO) 1.9 %; HGB - HEMOGLOBIN 14.8 g/dL (12.0-16.0); LYMPHOCYTES # (AUTO) 1.8 10^3/uL (1.5-3.5); MEAN CORPUSCULAR HEMOGLOBIN 30.9 pg (27.0-31.0); MEAN CORPUSCULAR HGB CONC 34.3 g/dL (32.0-36.0); MEAN CORPUSCULAR VOLUME 90.2 fL (81.0-99.0); MEAN PLATELET VOLUME 8.5 fL (7.9-10.8); MONOCYTES # (AUTO) 0.4 10^3/uL (0.0-1.0); MONOCYTES % (AUTO) 8.9 %; NEUTROPHILS # (AUTO) 1.9 10^3/uL (1.5-6.6); NEUTROPHILS % (AUTO) 45.6 %; PLT - PLATELET COUNT 185 10^3/uL (130-450); RED CELL DISTRIBUTION WIDTH 12.7 % (12.0-15.0); WHITE BLOOD COUNT 4.2 x10^3/uL (4.8-10.8)
[2017-06-10] MEDS ORDERED: ONDANSETRON 4 MG/2 ML VIAL IVP STA (09:53)
[2017-06-10] MEDS ORDERED: HYDROmorphone 1 MG/ML SYRINGE IVP STA (09:53)
[2017-06-10] MEDS ORDERED: SODIUM CHLORIDE 0.9% 1,000 ML IV ONE (09:53)
[2017-06-10 09:59] LABS: ALBUMIN 4.4 g/dL (3.2-5.5); ALBUMIN/GLOBULIN RATIO 1.3 (1.0-2.2); BILIRUBIN,TOTAL 1.2 mg/dL (0.2-1.0); CALCIUM 9.4 mg/dL (8.5-10.3); CREATININE 0.6 mg/dL (0.4-1.0); TOTAL PROTEIN 7.7 g/dL (6.7-8.2)
[2017-06-10] MEDS ORDERED: ACETAMINOPHEN 1,000 MG/100 ML 100 ML IV STA (11:06)
[2017-06-10] MEDS ORDERED: DICYCLOMINE 10 MG CAPSULE PO STA (11:06)
--- NOTE | 2017-06-10 11:09 | Ultrasound Report ---
EXAM: ABDOMEN ULTRASOUND LIMITED, RUQ EXAM DATE: 06/10/2017 10:51 AM. CLINICAL HISTORY: RUQ pain, with gallstones; eval for cholecystitis. COMPARISON: 05/18/2017. TECHNIQUE: Real-time scanning was performed with static images obtained. FINDINGS: Liver: Normal in size and echotexture. 8 mm right lobe simple cyst again demonstrated. 14.8 cm. Main portal vein flow: Hepatopetal. Gallbladder: Numerous mobile gallstones again demonstrated. Gallbladder sludge is present. No gallbla dder wall thickening. Positive sonographic Bunch sign. Biliary System: CBD measures 3.5 mm. No intrahepatic or extrahepatic ductal dilatation. Other: None. IMPRESSION: Cholelithiasis. The patient is focally tender over the gallbladder, but there are no othe r sonographic signs of acute cholecystitis. No significant change from prior. [facility] Referring Provider Line: [phone] SITE ID: [id number]
--- NOTE | 2017-06-10 11:09 | Ultrasound Preliminary Report ---
Exam: US ABDOMEN LIMITED IMPRESSION: Cholelithiasis. The patient is focally tender over the gallbladder, but there are no othe r sonographic signs of acute cholecystitis. No significant change from prior. [facility] SITE ID: [id number]
[2017-06-10 11:59] VITALS: BP 105/57
== END 2017-06-10 12:13 | disposition home or self-care (01) ==
LOC: ED 09:00
DX: K80.20 Calculus of gallbladder without cholecystitis without obstruction (principal); K82.8 Other specified diseases of gallbladder
CPT/HCPCS: 36415; 76705; 80053; 81003; 81025; 83690; 85025; 96361; 96374; 99283; 99284; A9270; J1170; 81001; 87086

== ENCOUNTER 2017-06-19 06:15 | Day surgery (SDC) | payer MEDICAID ==
[2017-06-19] MEDS ORDERED: ceFAZolin 2 GM/50 ML 2 GM/50 ML BAG IV ONE (06:37)
[2017-06-19] MEDS ORDERED: LACTATED RINGERS 1,000 ML IV ONE ×2 (06:49→09:06)
[2017-06-19 06:56] LABS: HCG UR QUAL NEGATIVE
[2017-06-19] MEDS ORDERED: SCOPOLAMINE PATCH TOP ONE (07:26)
[2017-06-19] MEDS ORDERED: KETOROLAC 30 MG/ML VIAL IVP ONE (08:15)
[2017-06-19] MEDS ORDERED: DEXAMETHASONE 4 MG/ML VIAL IVP ONE (08:15)
[2017-06-19] MEDS ORDERED: GLYCOPYRROLATE 1 MG/5 ML VIAL IVP ONE (08:15)
[2017-06-19] MEDS ORDERED: NEOSTIGMINE 1 MG/1 ML 10 ML MDV IVP ONE (08:15)
[2017-06-19] MEDS ORDERED: PROPOFOL 200 MG/20 ML VIAL IVP ONE (08:15)
[2017-06-19] MEDS ORDERED: fentaNYL 100 MCG/2 ML VIAL IVP ONE (08:15)
[2017-06-19] MEDS ORDERED: ePHEDrine 50 MG/ML AMP IVP ONE (08:15)
[2017-06-19] MEDS ORDERED: ACETAMINOPHEN 1,000 MG/100 ML 100 ML IV ONE (08:15)
[2017-06-19] MEDS ORDERED: MIDAZOLAM 2 MG/2 ML VIAL IVP ONE (08:15)
[2017-06-19] MEDS ORDERED: ROCURONIUM 50 MG/5 ML VIAL IVP ONE (08:15)
[2017-06-19] MEDS ORDERED: ONDANSETRON 4 MG/2 ML VIAL IVP ONE (08:15)
[2017-06-19] MEDS ORDERED: LIDOCAINE-MPF 2% 5 ML VIAL IM ONE (08:15)
[2017-06-19] MEDS ORDERED: BUPIVACAINE 0.25% PF 30 ML VIAL SUBQ ONE (08:32)
[2017-06-19] MEDS ORDERED: BUPIVACAINE 0.5%-EPI 1:200000 PF 30 ML VIAL SUBQ ONE (08:35)
[2017-06-19] MEDS: MEPERIDINE 50 MG/ML SYRINGE ONE ×3 (09:20→09:40)
--- NOTE | 2017-06-19 09:23 | OPERATIVE REPORT ---
Operative Report - General Procedure Date: 06/19/17 Pre-Op Diagnosis: biliary colic Procedure Performed: laparoscopic cholecystectomy and TAP block Post Op Diagnosis: biliary colic - Procedure Note Primary Surgeon: clark Anesthesia Technique: General ET tube - Other Other Information/Narrative: Procedure Performed: Laparoscopic cholecystectomy, TAP block Preoperative diagnosis: Biliary Colic Postoperative diagnosis: Biliary Colic Indication for procedure: This is a 41 year old female with persistent biliary colic presenting for laparoscopic cholecystectomy Anesthesia: General Surgeon: Dr. Boothe Findings: After obtaining informed consent the patient was brought into the operating room and positioned on the operating table in the supine position taking noted pressure points. The patient was intubated by anesthesia. Perioperative antibiotics were administered. The patient was then prepped and draped in the usual sterile fashion and a timeout was taken according to protocol. An infraumbilical 1 cm incision was created and deepened down to the umbilical stalk. The stalk was grasped and elevated and the veres needle inserted. The abdominal cavity was insufflated. A 5 mm incision was created in the patient's epigastric region to the right of the midline. Using a 5 mm Optiview trocar the abdominal cavity was entered. The Veress needle was removed and exchanged for a 12 mm port. 2 additional 5 mm ports were then placed along the patient's right lateral abdominal wall. The gallbladder was grasped and retracted over the dome of the liver. The gallbladder was noted to be uninflammed. The fundus of the gallbladder was grasped and retracted medially exposing the lateral attachments. The lateral attachments were carefully taken down working my way laterally to medially exposing the cystic duct. The cystic duct was circumferentially dissected free from surrounding fatty tissue. The cystic artery was similarly dissected out. The base of the gallbladder was dissected off of the liver bed and the critical view was obtained. The cystic duct was clipped with 2 clips placed proximally 1 distally and divided. The cystic artery was divided in a similar manner. The gallbladder was then removed from the gallbladder fossa with electrocautery. There was no spillage of bile and stones during the process of gallbladder removal. The gallbladder fossa was inspected for any signs of bleeding and none were noted. The gallbladder was then placed in a specimen bag and removed. The fascial incision was extended slightly with a blunt clamp to accommodate the gallbladder. 40 cc of marcaine lidocaine mixture was then injected at the costal margin intraperitoneally performing a TAP block. The abdominal cavity was then allowed to desufflate and all trochars were removed. The fascial incision was closed with a figure of eight 0 vicryl suture. The skin incisions were closed with 4-0 Monocryl and dermabond was applied. The patient was subsequently extubated and taken to the recovery room in stable condition. Estimated blood loss: Minimal Complications: None Specimen: Gallbladder
[2017-06-19] MEDS: HYDROmorphone 1 MG/ML SYRINGE ONE ×3 (09:28→09:45)
[2017-06-19] MEDS ORDERED: oxyCOD/ACETAMIN 5 MG/325 MG TABLET PO ONE (10:16)
[2017-06-19 11:20] VITALS: BP 97/53
== END 2017-06-19 06:16 | disposition home or self-care (01) ==
LOC: SDS 06:15
PROVIDERS: ATTEND Surgery
PROC: 0FT44ZZ Resection of Gallbladder, Percutaneous Endoscopic Approach (ICD-10-PCS; principal; 2017-06-19 07:30)
DX: K80.20 Calculus of gallbladder without cholecystitis without obstruction (principal); E03.9 Hypothyroidism, unspecified; F10.20 Alcohol dependence, uncomplicated
CPT/HCPCS: 47562; 81025; A9270; J0131; J0690; J1170; J3490; J7120

== ENCOUNTER 2017-07-27 12:53 | Emergency (ER) | payer MEDICAID ==
[2017-07-27] MEDS ORDERED: oxyCODONE 5 MG TABLET PO STA (13:12)
--- NOTE | 2017-07-27 13:16 | ED Physician Documentation ---
PD HPI BACK PAIN - Stated complaint Stated Complaint: UPPER BACK PX - Chief complaint Chief Complaint: Back Pain - History obtained from History obtained from: Patient - History of Present Illness Timing - onset: Other (41-year-old woman with history of Cantrell rods for scoliosis placed at age 14 developed gradual onset severe sharp upper back pain 2 days ago. It hurts to take a deep breath and hurts to rotate her neck but she is not short of breath. There is no associated fevers, chills, cough.) Review of Systems Constitutional: denies: Fever, Chills Ears: denies: Ear pain Throat: denies: Dental pain / toothache, Sore throat Cardiac: denies: Chest pain / pressure, Palpitations, Pedal edema, Calf pain Respiratory: denies: Dyspnea, Cough, Hemoptysis, Wheezing PD PAST MEDICAL HISTORY - Past Medical History Cardiovascular: None Respiratory: None Endocrine/Autoimmune: HyPOthyroidism GI: Cholelithiasis : Chronic bladder infection, Frequency HEENT: None Psych: None Musculoskeletal: Scoliosis, Chronic back pain Derm: None - Past Surgical History Past Surgical History: Yes 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 - Present Medications Home Medications: Ambulatory Orders Medication Instructions Recorded Confirmed Levothyroxine [Synthroid] 75 mcg PO DAILY 03/05/17 06/19/17 Cyclobenzaprine [Flexeril] 10 mg PO TID PRN #20 tablet 07/27/17 oxyCODONE [Roxicodone] 5 mg PO Q4-6H PRN #14 tablet 07/27/17 - Allergies Allergies/Adverse Reactions: Allergies Allergy/AdvReac Type Severity Reaction Status Date / Time hydrocodone [From Vicodin] Allergy lethargic Verified 07/27/17 12:59 paroxetine [From Paxil] AdvReac unresponsiv Verified 07/27/17 12:59 e - Social History Does the pt smoke?: No Smoking Status: Never smoker Does the pt drink ETOH?: No Does the pt have substance abuse?: Yes - Immunizations Immunizations are current?: Yes - POLST Patient has POLST: No PD ED PE NORMAL - Vitals Vital signs reviewed: Yes - General General: Alert and oriented X 3, No acute distress - Neck Neck: Supple, no meningeal sign, No bony TTP - Cardiac Cardiac: RRR, No murmur - Respiratory Respiratory: No respiratory distress, Clear bilaterally - Back Back: Other (She is tender to the upper thoracic spine with extensive midline surgical scar from prior Cantrell raymond placement. She has difficulty rotating her neck a little bit. 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, thumb extension, interossei strength, flexion and extension of the wrists bilaterally with normal upper extremity reflexes and sensation throughout.) - Extremities Extremities: No deformity - Neuro Neuro: Alert and oriented X 3, Normal speech Results - Vitals Vitals: Vital Signs - 24 hr 07/27/17 12:56 Temperature 36.8 C Heart Rate 75 Respiratory 18 Rate Blood Pressure 123/65 O2 Saturation 100 Oxygen O2 Source Room air - Rads (name of study) T spine XR Radiology: EMP read contemporaneously (Raymond in place, no frx) Departure - Departure Disposition: 01 Home, Self Care Clinical Impression: Back pain Qualifiers: Back pain location: thoracic back pain Chronicity: acute Back pain laterality: midline Qualified Code(s): M54.6 - Pain in thoracic spine Condition: Good Record reviewed to determine appropriate education?: Yes Instructions: ED Neck Back Pain General Prescriptions: Cyclobenzaprine [Flexeril] 10 mg PO TID PRN #20 tablet PRN Reason: Pain oxyCODONE [Roxicodone] 5 mg PO Q4-6H PRN #14 tablet PRN Reason: Pain Comments: Call your doctor to arrange a follow-up appointment, make the next available appointment. In the interim, return anytime if worse or if new symptoms develop. Do not drink or drive while taking narcotic pain medication. Note that many narcotic pain relievers also contain Tylenol/acetaminophen. Please ensure that your total dose of acetaminophen from all sources does not exceed 3 g (3000 mg) per day. You may get constipated while on this medication. Take a stool softener such as Colace twice a day while you are on it. Also add an [id number] laxative such as senna or MiraLAX on any day that you do not have a bowel movement. If you received a narcotic pain medication or sedative while in the emergency department, do not drive for the next 24 hours.
--- NOTE | 2017-07-27 13:56 | XRAY Preliminary Report ---
Exam: XR THORACIC SPINE 2 VIEW IMPRESSION: Scoliotic curvature of the spine with stabilization hardware. No acute fracture. [facility] SITE ID: [id number]
--- NOTE | 2017-07-27 13:56 | XRAY Report ---
EXAM: THORACIC SPINE RADIOGRAPHY EXAM DATE: 07/27/2017 01:42 PM. CLINICAL HISTORY: Upper back pain. COMPARISON: None. TECHNIQUE: 3 views. FINDINGS: Alignment: There are findings of surgical stabilization of the thoracic spine to upper lumbar spine i n a patient with scoliosis. There is 33 degrees of apex left scoliotic curvature between T1 and T7. T here is hardware spanning from the T4 level to the L2 level. Bones: No acute fracture is identified. Disks: There is disk height narrowing associated with scoliotic curvature. Soft Tissues: Paravertebral soft tissues appear unremarkable. IMPRESSION: Scoliotic curvature of the spine with stabilization hardware. No acute fracture. [facility] Referring Provider Line: [phone] SITE ID: [id number]
[2017-07-27 14:17] VITALS: BP 94/66
== END 2017-07-27 14:16 | disposition home or self-care (01) ==
LOC: ED 12:53
DX: M54.6 Pain in thoracic spine (principal)
CPT/HCPCS: 72070; 99283; A9270

== ENCOUNTER 2017-10-31 17:27 | Emergency (ER) | payer MEDICAID ==
[2017-10-31 17:51] VITALS: BP 117/83
--- NOTE | 2017-10-31 18:42 | XRAY Report ---
Procedure Date: 10/31/2017 Accession Number: [id number] / [id number] Procedure: XR - Foot 3 View RT CPT Code: FULL RESULT: EXAM: RIGHT FOOT RADIOGRAPHY EXAM DATE: 10/31/2017 06:18 PM. CLINICAL HISTORY: Crushing injury to right foot by 500 sewing machine. COMPARISON: None. TECHNIQUE: 3 views. FINDINGS: Bones: No acute fracture. Joints: Joint space and alignment appear satisfactory. Soft Tissues: Normal. No soft tissue swelling. IMPRESSION: No fracture. [facility]
--- NOTE | 2017-10-31 18:45 | ED Physician Documentation ---
PD HPI LOWER EXT INJURY - Stated complaint Stated Complaint: R FOOT INJURY - Chief complaint Chief Complaint: Ext Problem - History obtained from History obtained from: Patient - History of Present Illness PD HPI LOW EXT INJURY LOCATION: Right, Foot Type of injury: Blunt / blow (heavy machinery rocked onto her foot.) Where injury occurred: Work Timing - onset: Today Timing - details: Abrupt onset Associated symptoms: Numbness (lateral toes), Swelling. 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 - Present Medications Home Medications: Ambulatory Orders Medication Instructions Recorded Confirmed Levothyroxine [Synthroid] 75 mcg PO DAILY 03/05/17 06/19/17 Cyclobenzaprine [Flexeril] 10 mg PO TID PRN #20 tablet 07/27/17 oxyCODONE [Roxicodone] 5 mg PO Q4-6H PRN #14 tablet 07/27/17 - Allergies Allergies/Adverse Reactions: Allergies Allergy/AdvReac Type Severity Reaction Status Date / Time hydrocodone [From Vicodin] Allergy lethargic Verified 07/27/17 12:59 paroxetine [From Paxil] AdvReac unresponsiv Verified 07/27/17 12:59 e - Social History Does the pt smoke?: No Smoking Status: Never smoker Does the pt drink ETOH?: No Does the pt have substance abuse?: Yes - Immunizations Immunizations are current?: Yes - POLST Patient has POLST: No PD ED PE NORMAL - Vitals Vital signs reviewed: Yes - General General: Alert and oriented X 3, No acute distress, Well developed/nourished - Derm Derm: Normal color, Warm and dry - Extremities Extremities: Other (lateral right foot over area of MTs 3-5 with some contusion and bruising. Local swelling and tender. normal color and cap refill in toes. ) - Neuro Neuro: No motor deficit Results - Vitals Vitals: Oxygen O2 Source Room air - Rads (name of study) right foot xray Radiology: Prelim report reviewed, EMP read contemporaneously (no fractures) PD MEDICAL DECISION MAKING - ED course Complexity details: reviewed results (no fracture), considered differential, d/ w patient - Sepsis Event Vital Signs: Oxygen O2 Source Room air Departure - Departure Disposition: 01 Home, Self Care Clinical Impression: Foot contusion Qualifiers: Encounter type: initial encounter Laterality: right Qualified Code(s): S90.31XA - Contusion of right foot, initial encounter Condition: Stable Record reviewed to determine appropriate education?: Yes Instructions: ED Contusion Foot Follow-Up: Christine Buchanan ARNP [Primary Care Provider] - Comments: No fractures on x-ray. Tylenol ibuprofen if needed for pain. Activity as able. Progress activity based on comfort. Discharge Date/Time: 10/31/17 19:08
== END 2017-10-31 19:08 | disposition home or self-care (01) ==
LOC: ED 17:27
DX: S90.31XA Contusion of right foot, initial encounter (principal); W31.89XA Contact with other specified machinery, initial encounter; Y99.0 Civilian activity done for income or pay
CPT/HCPCS: 99282; 99283

== ENCOUNTER 2018-03-29 14:41 | Outpatient (CLI) | payer MEDICAID | END 2018-03-29 14:42 | disposition critical access hospital (66) | LOC: EMS 14:41 | PROVIDERS: ATTEND Surgery | DX: Z72.89 Other problems related to lifestyle (principal) | CPT/HCPCS: A0425; A0429; A0999 ==

== ENCOUNTER 2018-03-29 14:56 | Emergency (ER) | payer MEDICAID ==
--- NOTE | 2018-03-29 15:15 | ED Physician Documentation ---
PD HPI ALTERED MENTAL STATUS - Stated complaint Stated Complaint: ETOH - Chief complaint Chief Complaint: Neuro - History obtained from History obtained from: Patient, Family (), EMS - History of Present Illness Timing - onset: Today (Most of the history is from EMS and the due to her intoxicated state. She is a known alcoholic Per the . Last sobriety was a few weeks ago. She is never had severe withdrawal. I guess this morning she was at a bus stop and police were summoned. 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 - Present Medications Home Medications: Ambulatory Orders Medication Instructions Recorded Confirmed Levothyroxine [Synthroid] 75 mcg PO DAILY 03/05/17 06/19/17 - Allergies Allergies/Adverse Reactions: Allergies Allergy/AdvReac Type Severity Reaction Status Date / Time hydrocodone [From Vicodin] Allergy lethargic Verified 03/29/18 15:09 paroxetine [From Paxil] AdvReac unresponsiv Verified 03/29/18 15:09 e - Social History Does the pt smoke?: No Smoking Status: Never smoker Does the pt drink ETOH?: No Does the pt have substance abuse?: Yes - Immunizations Immunizations are current?: Yes - POLST Patient has POLST: No PD ED PE NORMAL - Vitals Vital signs reviewed: Yes - General General: Other (She is alert and moving all extremities well. She follows simple commands and seems overly touchy.) - HEENT HEENT: PERRL, EOMI - Neck Neck: Supple, no meningeal sign, No bony TTP - Cardiac Cardiac: RRR, No murmur - Respiratory Respiratory: No respiratory distress, Clear bilaterally - Abdomen Abdomen: Normal bowel sounds, Soft, Non tender - Derm Derm: Normal color, Warm and dry - Neuro Neuro: contract assistant 2-12 intact Eye Opening: Spontaneous Motor: Obeys Commands Verbal: Confused GCS Score: 14 Results - Vitals Vitals: Vital Signs - 24 hr 03/29/18 15:01 Temperature 36.0 C L Heart Rate 122 H Respiratory 16 Rate Blood Pressure 127/78 O2 Saturation 100 Oxygen O2 Source Room air - Labs Labs: Laboratory Tests 03/29/18 03/29/18 03/29/18 15:20 15:20 16:05 WBC 4.8 RBC 4.61 Hgb 15.0 Hct 43.3 MCV 93.9 MCH 32.7 H MCHC 34.8 RDW 12.6 Plt Count 210 MPV 8.2 Neut # (Auto) 2.6 Lymph # (Auto) 1.9 [place] # (Auto) 0.3 Eos # (Auto) 0.0 Baso # (Auto) 0.0 Absolute Nucleated RBC 0.00 Nucleated RBC % 0.0 Sodium 138 Potassium 3.6 Chloride 105 Carbon Dioxide 24 Anion Gap 9.0 BUN 9 Creatinine 0.6 Estimated GFR (MDRD) 110 Glucose 126 H Calcium 8.6 Total Bilirubin 0.6 AST 44 H ALT 23 Alkaline Phosphatase 60 Total Protein 7.9 Albumin 4.7 Globulin 3.2 Albumin/Globulin Ratio 1.5 Lipase 18 L Serum HCG, Qual NEGATIVE Urine Color STRAW Urine Clarity CLEAR Urine pH 6.0 Ur Specific [place] <=1.005 Urine Protein NEGATIVE Urine Glucose (UA) NEGATIVE Urine Ketones NEGATIVE Urine Occult Blood TRACE-INTA Urine Nitrite NEGATIVE Urine Bilirubin NEGATIVE Urine Urobilinogen 0.2 (NORMAL) Ur Leukocyte Esterase NEGATIVE Ur Microscopic Review NOT INDICATED Urine Culture Comments NOT INDICATED Urine Opiates Screen NEGATIVE Ur Oxycodone Screen NEGATIVE Urine Methadone Screen NEGATIVE Ur Propoxyphene Screen NEGATIVE Ur Barbiturates Screen NEGATIVE Ur Tricyclics Screen NEGATIVE Ur Phencyclidine Scrn NEGATIVE Ur Amphetamine Screen NEGATIVE U Methamphetamines Scrn NEGATIVE U Benzodiazepines Scrn NEGATIVE Urine Cocaine Screen NEGATIVE U Cannabinoids Screen NEGATIVE Ethyl Alcohol 284.2 - Rads (name of study) CT Head and C spine Radiology: EMP read contemporaneously (Normal) PD MEDICAL DECISION MAKING - ED course ED course: 42-year-old woman presents with acute alcohol intoxication as well as potential head injury. CTs were without acute findings. She was allowed to sober up for several hours in the department until she was clinically safe to be discharged with her significant other. They did speak with the rn social work and was given referrals for outpatient follow-up for help with alcoholism. Departure - Departure Disposition: 01 Home, Self Care Clinical Impression: Alcohol intoxication delirium Head injury Qualifiers: Encounter type: initial encounter Qualified Code(s): S09.90XA - Unspecified injury of head, initial encounter Condition: Good Record reviewed to determine appropriate education?: Yes Instructions: ED Alcohol Intoxication Comments: Return for any new or worsening symptoms. Refrain from drinking alcohol. Follow the instructions of the rn social work with regard to obtaining help for alcoholism.
[2018-03-29 15:26] LABS: BASOPHILS % (AUTO) 0.4 %; EOSINOPHILS % (AUTO) 0.9 %; LYMPHOCYTES # (AUTO) 1.9 10^3/uL (1.5-3.5); LYMPHOCYTES % (AUTO) 38.4 %; MEAN CORPUSCULAR HEMOGLOBIN 32.7 pg (27.0-31.0); MEAN CORPUSCULAR HGB CONC 34.8 g/dL (32.0-36.0); MEAN CORPUSCULAR VOLUME 93.9 fL (81.0-99.0); MEAN PLATELET VOLUME 8.2 fL (7.9-10.8); MONOCYTES # (AUTO) 0.3 10^3/uL (0.0-1.0); MONOCYTES % (AUTO) 6.9 %; NEUTROPHILS # (AUTO) 2.6 10^3/uL (1.5-6.6); NEUTROPHILS % (AUTO) 53.4 %; PLT - PLATELET COUNT 210 10^3/uL (130-450); RED BLOOD COUNT 4.61 10^6/uL (4.20-5.40); RED CELL DISTRIBUTION WIDTH 12.6 % (12.0-15.0); WHITE BLOOD COUNT 4.8 x10^3/uL (4.8-10.8)
[2018-03-29 15:45] LABS: ALBUMIN 4.7 g/dL (3.2-5.5); ALBUMIN/GLOBULIN RATIO 1.5 (1.0-2.2); ALKALINE PHOSPHATASE 60 IU/L (42-121); ALT ALANINE AMINOTRANSFERASE 23 IU/L (10-60); AST ASPARTATE AMINOTRANSFERASE 44 IU/L (10-42); BILIRUBIN,TOTAL 0.6 mg/dL (0.2-1.0); BUN - BLOOD UREA NITROGEN 9 mg/dL (6-20); CALCIUM 8.6 mg/dL (8.5-10.3); CARBON DIOXIDE - CO2 24 mmol/L (21-32); CHLORIDE 105 mmol/L (101-111); CREATININE 0.6 mg/dL (0.4-1.0); GFR - MDRD 110 (>89); GLUCOSE 126 mg/dL (70-100); LIPASE 18 U/L (22-51); SODIUM 138 mmol/L (135-145); TOTAL PROTEIN 7.9 g/dL (6.7-8.2)
[2018-03-29 15:51] LABS: HCG,QUALITATIVE BLOOD NEGATIVE
--- NOTE | 2018-03-29 15:59 | CT Report ---
Reason: head inj, etoh Procedure Date: 03/29/2018 Accession Number: [id number] / [id number] Procedure: CT - Head W/O CPT Code: FULL RESULT: EXAM: CT HEAD EXAM DATE: 03/29/2018 03:26 PM. CLINICAL HISTORY: Head inj, etoh. COMPARISON: None. TECHNIQUE: Multiaxial CT images were obtained from the foramen magnum to the vertex. Reformats: Sagittal and coronal. IV contrast: None. In accordance with CT protocol optimization, one or more of the following dose reduction techniques were utilized for this exam: automated exposure control, adjustment of mA and/or KV based on patient size, or use of iterative reconstructive technique. FINDINGS: Parenchyma: No intraparenchymal hemorrhage. No evidence of mass, midline shift, or CT findings of infarction. Feliz-white differentiation is distinct. Extraaxial Spaces: Normal for age. No subdural or epidural collections identified. Ventricles: Normal in size and position. Sinuses and Orbits: Imaged paranasal sinuses, orbits, and mastoids show no significant abnormality. Bones: No evidence of fracture or calvarial defect. Other: None. IMPRESSION: No acute intracranial abnormality. RADIA
--- NOTE | 2018-03-29 16:01 | CT Report ---
Reason: head inj, etoh Procedure Date: 03/29/2018 Accession Number: [id number] / [id number] Procedure: CT - Cervical Spine W/O CPT Code: FULL RESULT: EXAM: CT CERVICAL SPINE WITHOUT CONTRAST DATE: 03/29/2018 03:53 PM. HISTORY: Head injury, EtOH. COMPARISONS: None. TECHNIQUE: Thin-section axial images were acquired of the cervical spine without contrast. Post-processing: Coronal and sagittal reformats. Other: None. In accordance with CT protocol optimization, one or more of the following dose reduction techniques were utilized for this exam: automated exposure control, adjustment of mA and/or KV based on patient size, or use of iterative reconstructive technique. FINDINGS: Alignment: Apparent rotation and scoliosis of the cervical spine is felt to be a positional finding in absence of any evidence of soft tissue stranding, swelling or rotatory malalignment of posterior elements of facet joints. Bones: No fracture or bone lesion. Interspace Levels/Facets: C1-C2: Unremarkable. C2-C3: Unremarkable. C3-C4: Unremarkable. C4-C5: Unremarkable. C5-C6: Unremarkable. C6-C7: Unremarkable. C7-T1: Unremarkable. Musculature: Normal. No fatty atrophy. Other: The paravertebral and prevertebral soft tissues are unremarkable. The lung apices are clear. IMPRESSION: Apparent scoliosis is likely positional. No evidence of osseous trauma to the cervical spine. RADIA
[2018-03-29 16:11] LABS: MUDS CUTOFF CONCENTRATIONS CUTOFF CONC BELOW:
[2018-03-29 16:17] LABS: BILIRUBIN,URINE NEGATIVE (NEGATIVE); GLUCOSE, URINE (UA) NEGATIVE (NEGATIVE); KETONES,URINE (UA) NEGATIVE (NEGATIVE); LEUKOCYTE ESTERASE, URINE NEGATIVE (NEGATIVE); NITRITE,URINE NEGATIVE (NEGATIVE); OCCULT BLOOD,URINE TRACE-INTA (NEGATIVE); PROTEIN,URINE NEGATIVE (NEGATIVE); UROBILINOGEN,URINE 0.2 (NORMAL) E.U./dL (NORMAL)
[2018-03-29 16:23] LABS: CLARITY,URINE CLEAR (CLEAR)
[2018-03-29 16:29] LABS: AMPHETAMINE SCREEN,URINE NEGATIVE (NEGATIVE); BENZODIAZEPINES SCREEN, URINE NEGATIVE (NEGATIVE); COCAINE SCREEN URINE NEGATIVE (NEGATIVE); METHADONE SCREEN, URINE NEGATIVE (NEGATIVE); METHAMPHETAMINES SCREEN, URINE NEGATIVE (NEGATIVE); OPIATE SCREEN, URINE NEGATIVE (NEGATIVE); OXYCODONE SCREEN, URINE NEGATIVE (NEGATIVE); PROPOXYPHENE SCREEN, URINE NEGATIVE (NEGATIVE); TRICYCLIC ANTIDEPRESSANT,URINE NEGATIVE (NEGATIVE)
[2018-03-29 17:12] VITALS: BP 94/68
== END 2018-03-29 17:16 | disposition home or self-care (01) ==
LOC: EDUNIT# → ED 14:56
DX: F10.121 Alcohol abuse with intoxication delirium (principal); S09.90XA Unspecified injury of head, initial encounter; W18.30XA Fall on same level, unspecified, initial encounter; Y92.89 Other specified places as the place of occurrence of the external cause
CPT/HCPCS: 36415; 70450; 72125; 80053; 80306; 80320; 81001; 81003; 83690; 84703; 85025; 87086; 99282; 99284

== ENCOUNTER 2018-05-25 08:00 | Outpatient (CLI) | payer MEDICAID | END 2018-05-25 23:59 | disposition home or self-care (01) | LOC: LAB.N 08:00 | PROVIDERS: ATTEND Nurse Practitioner Gerontology | DX: E03.9 Hypothyroidism, unspecified (principal) | CPT/HCPCS: 36415; 84443 ==

== ENCOUNTER 2018-08-14 07:20 | Day surgery (SDC) | payer MEDICAID ==
[~2018-08-14 07:20] MED LIST: MIDAZOLAM 2 MG/2 ML VIAL IVP ONE; fentaNYL 250 MCG/5 ML VIAL IVP ONE
[2018-08-14] MEDS ORDERED: LACTATED RINGERS 1,000 ML IV ONE ×2 (07:28→09:40)
[2018-08-14 07:55] LABS: HCG UR QUAL NEGATIVE
[2018-08-14] MEDS ORDERED: ONDANSETRON 4 MG/2 ML VIAL ONE (10:31)
[2018-08-14 11:25] VITALS: BP 88/49
== END 2018-08-14 07:21 | disposition home or self-care (01) ==
LOC: SDS 07:20
PROVIDERS: ATTEND Surgery
PROC: 0DBP8ZZ Excision of Rectum, Via Natural or Artificial Opening Endoscopic (ICD-10-PCS; principal; 2018-08-14 08:45)
DX: K92.1 Melena (principal); R10.30 Lower abdominal pain, unspecified; R10.2 Pelvic and perineal pain; K62.1 Rectal polyp; K64.8 Other hemorrhoids
CPT/HCPCS: 45385; 81025; J7120

== ENCOUNTER 2018-11-28 08:00 | Outpatient (CLI) | payer MEDICAID ==
[2018-11-28 18:59] LABS: HGB - HEMOGLOBIN 14.1 g/dL (12.0-16.0); MEAN CORPUSCULAR HEMOGLOBIN 31.7 pg (27.0-31.0); MEAN CORPUSCULAR HGB CONC 32.9 g/dL (32.0-36.0); MEAN CORPUSCULAR VOLUME 96.2 fL (81.0-99.0); MEAN PLATELET VOLUME 11.1 fL (7.9-10.8); RED BLOOD COUNT 4.45 10^6/uL (4.20-5.40); RED CELL DISTRIBUTION WIDTH 12.4 % (12.0-15.0); WHITE BLOOD COUNT 3.9 x10^3/uL (4.8-10.8)
[2018-11-28 19:47] LABS: CRP - C-REACTIVE PROTEIN < 1.0 mg/dL (0-1.0)
[2018-11-28 19:48] LABS: URIC ACID 4.9 mg/dL (2.6-7.2)
[2018-11-28 21:08] LABS: RHEUMATOID FACTOR NEGATIVE (Negative)
[2018-11-30 12:47] LABS: ANA SCREEN NEGATIVE (NEGATIVE)
== END 2018-11-28 23:59 | disposition home or self-care (01) ==
LOC: LAB.N 08:00
PROVIDERS: ATTEND Nurse Practitioner Gerontology
DX: E03.9 Hypothyroidism, unspecified (principal); M25.50 Pain in unspecified joint
CPT/HCPCS: 36415; 84443; 84550; 85027; 85651; 86038; 86140; 86200; 86430

== ENCOUNTER 2019-09-19 19:49 | Emergency (ER) | payer MEDICAID ==
--- NOTE | 2019-09-19 20:09 | ED Physician Documentation ---
History of Present Illness - Stated complaint Stated Complaint: LT ARM PX, HEARTBURN - Chief complaint Chief Complaint: Cardiac - History obtained from History obtained from: Patient (Patient is a 43-year-old female presents with a chief complaint of reflux and GERD and also some abnormal sensation to the left side of her chest.Patient denies any syncopal episodes denies any history of pulmonary embolism or DVT denies any chest pain currently. Denies any family history of sudden in mother, father, brother sister.) Review of Systems Constitutional: reports: Reviewed and negative Eyes: reports: Reviewed and negative Ears: reports: Reviewed and negative Nose: reports: Reviewed and negative Throat: reports: Reviewed and negative Cardiac: reports: Chest pain / pressure Respiratory: reports: Reviewed and negative GI: reports: Nausea : reports: Reviewed and negative Skin: reports: Reviewed and negative Musculoskeletal: reports: Reviewed and negative Neurologic: reports: Reviewed and negative Psychiatric: reports: Reviewed and negative Endocrine: reports: Reviewed and negative Immunocompromised: reports: Reviewed and negative PD PAST MEDICAL HISTORY - Past Medical History Cardiovascular: None Respiratory: None Endocrine/Autoimmune: HyPOthyroidism GI: GI bleed, Chronic constipation : None HEENT: None Psych: None Musculoskeletal: None Derm: None - Past Surgical History Past Surgical History: Yes General: Cholecystectomy 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 - Present Medications Home Medications: Ambulatory Orders Medication Instructions Recorded Confirmed Levothyroxine [Synthroid] 50 mcg PO DAILY 03/05/17 08/14/18 - Allergies Allergies/Adverse Reactions: Allergies Allergy/AdvReac Type Severity Reaction Status Date / Time hydrocodone [From Vicodin] Allergy lethargic Verified 09/19/19 20:04 paroxetine [From Paxil] AdvReac unresponsiv Verified 09/19/19 20:04 e - Social History Does the pt smoke?: No Smoking Status: Never smoker Does the pt drink ETOH?: No Does the pt have substance abuse?: Yes - Immunizations Immunizations are current?: Yes - POLST Patient has POLST: No PD ED PE NORMAL - Vitals Vital signs reviewed: Yes - General General: Alert and oriented X 3, No acute distress, Well developed/nourished - HEENT HEENT: PERRL - Neck Neck: Supple, no meningeal sign - Cardiac Cardiac: RRR, No murmur, Strong equal pulses - Respiratory Respiratory: Clear bilaterally - Abdomen Abdomen: Normal bowel sounds, Soft, Non tender, Non distended, No organomegaly - Derm Derm: Warm and dry - Extremities Extremities: No deformity - Neuro Neuro: Alert and oriented X 3, yarn examiner 2-12 intact, No motor deficit, No sensory deficit, Normal speech - Psych Psych: Normal mood, Normal affect Results - Vitals Vitals: Vital Signs - 24 hr 09/19/19 09/19/19 09/19/19 19:58 20:29 21:34 Temperature 36.8 C Heart Rate 90 71 73 Respiratory 18 17 16 Rate Blood Pressure 123/63 116/67 94/53 L O2 Saturation 100 100 96 09/19/19 21:40 Temperature Heart Rate 70 Respiratory 16 Rate Blood Pressure 101/63 O2 Saturation 100 Oxygen O2 Source Room air - EKG (time done) 19:57 Rate: Other (no stemi) - Labs Labs: Laboratory Tests 09/19/19 09/19/19 09/19/19 20:10 20:10 20:10 WBC 6.5 RBC 4.50 Hgb 14.2 Hct 41.0 MCV 91.1 MCH 31.6 H MCHC 34.6 RDW 11.8 L Plt Count 212 MPV 10.1 Neut # (Auto) 3.6 Lymph # (Auto) 2.3 [place] # (Auto) 0.5 Eos # (Auto) 0.1 Baso # (Auto) 0.0 Absolute Nucleated RBC 0.00 Nucleated RBC % 0.0 Sodium 138 Potassium 3.4 L Chloride 101 Carbon Dioxide 29 Anion Gap 8.0 BUN 11 Creatinine 0.6 Estimated GFR (MDRD) 110 Glucose 113 H Calcium 9.4 Total Bilirubin 0.8 AST 18 ALT 14 Alkaline Phosphatase 51 Troponin I High Sens < 2.3 L Total Protein 7.5 Albumin 4.3 Globulin 3.2 Albumin/Globulin Ratio 1.3 Lipase 33 PD MEDICAL DECISION MAKING - ED course Complexity details: reviewed results, re-evaluated patient (Patient's pain resolved after being treated with a GI cocktail her EKG is unremarkable troponin is unremarkable.), considered differential (History is more consistent with likely not emergent to her [id number] EKGs negative troponins negative chest x-ray is negative heart score of 1 PERC score of 0.), d/w patient Departure - Departure Disposition: 01 Home, Self Care Clinical Impression: Chest pain Qualifiers: Chest pain type: unspecified Qualified Code(s): R07.9 - Chest pain, unspecified Condition: Stable Instructions: ED Chest Pain Atypical Unkn Cause Follow-Up: your, doctor [Other] Comments: Start taking [id number] Prilosec. Call your doctor tomorrow to schedule follow-up. Discharge Date/Time: 09/19/19 21:40
[2019-09-19 20:17] LABS: BASOPHILS % (AUTO) 0.5 %; EOSINOPHILS # (AUTO) 0.1 10^3/uL (0.0-0.7); EOSINOPHILS % (AUTO) 1.7 %; HGB - HEMOGLOBIN 14.2 g/dL (12.0-16.0); LYMPHOCYTES # (AUTO) 2.3 10^3/uL (1.5-3.5); LYMPHOCYTES % (AUTO) 34.8 %; MEAN CORPUSCULAR HEMOGLOBIN 31.6 pg (27.0-31.0); MEAN CORPUSCULAR HGB CONC 34.6 g/dL (32.0-36.0); MEAN CORPUSCULAR VOLUME 91.1 fL (81.0-99.0); MEAN PLATELET VOLUME 10.1 fL (7.9-10.8); MONOCYTES # (AUTO) 0.5 10^3/uL (0.0-1.0); MONOCYTES % (AUTO) 7.4 %; NEUTROPHILS # (AUTO) 3.6 10^3/uL (1.5-6.6); NEUTROPHILS % (AUTO) 55.3 %; PLT - PLATELET COUNT 212 10^3/uL (130-450); RED CELL DISTRIBUTION WIDTH 11.8 % (12.0-15.0); WHITE BLOOD COUNT 6.5 x10^3/uL (4.8-10.8)
[2019-09-19 20:31] LABS: ALBUMIN 4.3 g/dL (3.2-5.5); ALBUMIN/GLOBULIN RATIO 1.3 (1.0-2.2); BILIRUBIN,TOTAL 0.8 mg/dL (0.2-1.0); CALCIUM 9.4 mg/dL (8.5-10.3); CREATININE 0.6 mg/dL (0.4-1.0); TOTAL PROTEIN 7.5 g/dL (6.7-8.2)
[2019-09-19] MEDS ORDERED: MAG HYDROX/AL HYDROX/SIMETH 30 ML UDC PO STA (20:31)
[2019-09-19] MEDS ORDERED: LIDOCAINE VISCOUS 2% 15 ML UDC MM STA (20:31)
[2019-09-19] MEDS ORDERED: diphenhydrAMINE ELIXIR 25 MG/10 ML UDC PO STA (20:31)
[2019-09-19] MEDS ORDERED: GI COCKTAIL 120 ML BOTTLE PO SCH (21:00)
--- NOTE | 2019-09-19 21:02 | XRAY Report ---
Reason: Chest pain Procedure Date: 09/19/2019 Accession Number: [id number] / [id number] Procedure: XR - Chest 1 View X-Ray CPT Code: 13262 Final Report FULL RESULT: PROCEDURE: Chest 1 View X-Ray INDICATIONS: Chest pain TECHNIQUE: One view of the chest was acquired. COMPARISON: None. FINDINGS: Surgical changes and devices: Postsurgical changes are demonstrated status post posterior fixation in the thoracic spine. Lungs and pleura: No pleural effusions or pneumothorax. Lungs are clear. Mediastinum: Mediastinal contours appear normal. Heart size is normal. Bones and chest wall: There is a dextroscoliosis of the midthoracic spine with a fixation robert present. Overlying soft tissues appear unremarkable. IMPRESSION: 1. No acute cardiopulmonary disease. Reviewed by: Tylor Gabriel MD on 09/19/2019 9:01 PM PDT Approved by: Tylor Gabriel MD on 09/19/2019 9:01 PM PDT Station ID: [id number]
[2019-09-19 22:07] VITALS: BP 101/63
== END 2019-09-19 21:40 | disposition home or self-care (01) ==
LOC: ED 19:49
DX: R07.9 Chest pain, unspecified (principal); R11.0 Nausea
CPT/HCPCS: 36415; 71045; 80053; 83690; 84484; 85025; 93005; 99283; 99284; A9270

== ENCOUNTER 2020-02-10 16:15 | Outpatient (CLI) | payer MEDICAID | END 2020-02-10 23:59 | disposition home or self-care (01) | LOC: LAB.R 16:15 | PROVIDERS: ATTEND Physician Assistant Medical | DX: R35.1 Nocturia (principal) | CPT/HCPCS: 87086 ==

== ENCOUNTER 2020-02-15 08:51 | Outpatient (CLI) | payer MEDICAID ==
[2020-02-15 09:48] LABS: BASOPHILS % (AUTO) 0.6 %; EOSINOPHILS # (AUTO) 0.2 10^3/uL (0.0-0.7); EOSINOPHILS % (AUTO) 4.2 %; HGB - HEMOGLOBIN 13.9 g/dL (12.0-16.0); LYMPHOCYTES # (AUTO) 1.3 10^3/uL (1.5-3.5); LYMPHOCYTES % (AUTO) 36.1 %; MEAN CORPUSCULAR HEMOGLOBIN 31.7 pg (27.0-31.0); MEAN CORPUSCULAR HGB CONC 33.6 g/dL (32.0-36.0); MEAN CORPUSCULAR VOLUME 94.3 fL (81.0-99.0); MEAN PLATELET VOLUME 10.2 fL (7.9-10.8); MONOCYTES # (AUTO) 0.3 10^3/uL (0.0-1.0); MONOCYTES % (AUTO) 7.8 %; NEUTROPHILS # (AUTO) 1.8 10^3/uL (1.5-6.6); PLT - PLATELET COUNT 210 10^3/uL (130-450); RED BLOOD COUNT 4.39 10^6/uL (4.20-5.40); RED CELL DISTRIBUTION WIDTH 11.9 % (12.0-15.0); WHITE BLOOD COUNT 3.6 x10^3/uL (4.8-10.8)
[2020-02-15 10:05] LABS: ALBUMIN/GLOBULIN RATIO 1.3 (1.0-2.2); ALKALINE PHOSPHATASE 50 IU/L (42-121); ALT ALANINE AMINOTRANSFERASE 17 IU/L (10-60); AST ASPARTATE AMINOTRANSFERASE 20 IU/L (10-42); BILIRUBIN,TOTAL 1.1 mg/dL (0.2-1.0); BUN - BLOOD UREA NITROGEN 11 mg/dL (6-20); CALCIUM 8.9 mg/dL (8.5-10.3); CARBON DIOXIDE - CO2 29 mmol/L (21-32); CHLORIDE 105 mmol/L (101-111); CHOL/HDL RATIO 3.7 (<4.4); CHOLESTEROL 199 mg/dL; CREATININE 0.7 mg/dL (0.4-1.0); GLUCOSE 103 mg/dL (70-100); HDL CHOLESTEROL 54 mg/dL; LDL CHOLESTEROL,CALCULATED 130 mg/dL; LDL/HDL RATIO 2.4 (<4.4); SODIUM 140 mmol/L (135-145); TOTAL PROTEIN 7.2 g/dL (6.7-8.2); VLDL CHOLESTEROL 15 mg/dL
== END 2020-02-15 08:52 | disposition home or self-care (01) ==
LOC: LAB 08:51
PROVIDERS: ATTEND Physician Assistant Medical
DX: Z00.00 Encounter for general adult medical examination without abnormal findings (principal); E03.9 Hypothyroidism, unspecified; D64.9 Anemia, unspecified; R35.1 Nocturia; Z12.4 Encounter for screening for malignant neoplasm of cervix
CPT/HCPCS: 36415; 80053; 80061; 83721; 84443; 85025; 87086

== ENCOUNTER 2020-03-16 17:28 | Outpatient (CLI) | payer MEDICAID | END 2020-03-16 17:29 | disposition home or self-care (01) | LOC: COV 17:28 | PROVIDERS: ATTEND Surgery | DX: Z01.818 Encounter for other preprocedural examination (principal); R10.9 Unspecified abdominal pain; Z20.828 Contact with and (suspected) exposure to other viral communicable diseases ==

== ENCOUNTER 2020-03-20 08:32 | Day surgery (SDC) | payer MEDICAID ==
[2020-03-20 08:53] LABS: HCG UR QUAL NEGATIVE
[2020-03-20] MEDS ORDERED: LACTATED RINGERS 1,000 ML IV ONE (08:59)
[2020-03-20] MEDS ORDERED: BENZOCAINE/TETRACAINE/BUTAMBEN 20 GM ONE (09:40)
[2020-03-20] MEDS ORDERED: LIDO GARGLE 30 ML BOTTLE ONE (09:40)
[2020-03-20] MEDS ORDERED: MIDAZOLAM 2 MG/2 ML VIAL IVP ONE (09:50)
[2020-03-20] MEDS ORDERED: fentaNYL 250 MCG/5 ML VIAL IVP ONE (09:50)
[2020-03-20] MEDS ORDERED: LIDO GARGLE 30 ML BOTTLE PO ONE (09:57)
[2020-03-20] MEDS ORDERED: BENZOCAINE/TETRACAINE/BUTAMBEN 20 GM TOP ONE (09:58)
[2020-03-20] MEDS ORDERED: LACTATED RINGERS 500 ML IV ONE (10:11)
[2020-03-20 11:20] VITALS: BP 94/59
== END 2020-03-20 08:33 | disposition home or self-care (01) ==
LOC: SDS 08:32
PROVIDERS: ATTEND Surgery
PROC: 0DB78ZX Excision of Stomach, Pylorus, Via Natural or Artificial Opening Endoscopic, Diagnostic (ICD-10-PCS; 2020-03-20)
PROC: 0DB58ZX Excision of Esophagus, Via Natural or Artificial Opening Endoscopic, Diagnostic (ICD-10-PCS; 2020-03-20)
PROC: 0DB98ZX Excision of Duodenum, Via Natural or Artificial Opening Endoscopic, Diagnostic (ICD-10-PCS; principal; 2020-03-20 10:00)
DX: K29.50 Unspecified chronic gastritis without bleeding (principal)
CPT/HCPCS: 43239; 81025; 87081; A9270; J3010; J7120

== ENCOUNTER 2020-06-11 08:00 | Outpatient (CLI) | payer MEDICAID ==
[2020-06-11 17:55] LABS: BASOPHILS % (AUTO) 0.7 %; EOSINOPHILS # (AUTO) 0.1 10^3/uL (0.0-0.7); EOSINOPHILS % (AUTO) 1.7 %; HGB - HEMOGLOBIN 14.3 g/dL (12.0-16.0); LYMPHOCYTES # (AUTO) 1.4 10^3/uL (1.5-3.5); MEAN CORPUSCULAR HEMOGLOBIN 30.8 pg (27.0-31.0); MEAN CORPUSCULAR HGB CONC 32.7 g/dL (32.0-36.0); MEAN PLATELET VOLUME 11.3 fL (7.9-10.8); MONOCYTES # (AUTO) 0.3 10^3/uL (0.0-1.0); NEUTROPHILS # (AUTO) 2.3 10^3/uL (1.5-6.6); NEUTROPHILS % (AUTO) 56.4 %; PLT - PLATELET COUNT 234 10^3/uL (130-450); RED BLOOD COUNT 4.65 10^6/uL (4.20-5.40); RED CELL DISTRIBUTION WIDTH 12.1 % (12.0-15.0); WHITE BLOOD COUNT 4.2 x10^3/uL (4.8-10.8)
[2020-06-11 18:03] LABS: ALBUMIN 4.2 g/dL (3.2-5.5); ALBUMIN/GLOBULIN RATIO 1.3 (1.0-2.2); BILIRUBIN,TOTAL 0.8 mg/dL (0.2-1.0); CALCIUM 9.1 mg/dL (8.5-10.3); CREATININE 0.6 mg/dL (0.4-1.0); TOTAL PROTEIN 7.4 g/dL (6.7-8.2)
[2020-06-11 18:47] LABS: FOLLICLE STIMULATING HORMONE 13.23 mIU/mL
[2020-06-11 18:48] LABS: LUTEINIZING HORMONE 5.1 mIU/mL
[2020-06-12 13:38] LABS: HEPATITIS C ANTIBODY NON-REACTIVE (NON-REACTIVE)
== END 2020-06-11 23:59 | disposition home or self-care (01) ==
LOC: LAB.N 08:00
PROVIDERS: ATTEND Physician Assistant Medical
DX: R61 Generalized hyperhidrosis (principal)
CPT/HCPCS: 36415; 80053; 83001; 83002; 84443; 85025; 86803

== ENCOUNTER 2020-06-11 11:14 | Outpatient (CLI) | payer MEDICAID ==
--- NOTE | 2020-06-11 13:15 | XRAY Report ---
PROCEDURE: Chest 2 View X-Ray INDICATIONS: NIGHT SWEATS TECHNIQUE: 2 view(s) of the chest. COMPARISON: None. FINDINGS: Surgical changes and devices: Cantrell robert centered to the left of midline.. Lungs and pleura: No pleural effusions or pneumothorax. Lungs are clear. Mediastinum: Mediastinal contours are normal. Heart size is normal. Bones and chest wall: No suspicious bony abnormalities. Soft tissues appear unremarkable. IMPRESSION: No pneumonia found, no adenopathy seen. Cantrell robert, no source of night sweats found. Reviewed by: jA Blackburn MD on 06/11/2020 1:14 PM PST Approved by: Aj Blackburn MD on 06/11/2020 1:14 PM PST Station ID: [id number]
== END 2020-06-11 23:59 | disposition home or self-care (01) ==
LOC: DI.N 11:14
PROVIDERS: ATTEND Family Medicine
DX: R61 Generalized hyperhidrosis (principal)
CPT/HCPCS: 36415; 80053; 83001; 83002; 84443; 85025; 86803

== ENCOUNTER 2020-06-12 13:41 | Outpatient (CLI) | payer MEDICAID ==
[2020-06-12] MEDS ORDERED: IOVERSOL 320 100 ML VIAL IVP ONE ×2 (13:54→15:04)
[2020-06-12] MEDS ORDERED: IOPAMIDOL-300 50 ML VIAL ONE (13:56)
[2020-06-12] MEDS ORDERED: IOPAMIDOL-300 50 ML VIAL PO ONE (15:04)
--- NOTE | 2020-06-12 15:14 | CT Report ---
PROCEDURE: Abdomen/Pelvis W INDICATIONS: CHRONIC ABD PAIN CONTRAST: IV CONTRAST: Optiray 320 ml: 100 PO CONTRAST: Isovue 300 ml50 TECHNIQUE: After the administration of intravenous and oral contrast, 5 mm thick sections acquired from the diap hragms to the symphysis. 5 mm thick coronal and sagittal reformats were acquired. For radiation dos e reduction, the following was used: automated exposure control, adjustment of mA and/or kV accordin g to patient size. COMPARISON: None. FINDINGS: Image quality: Excellent. ABDOMEN: Lung bases: Lung bases are clear. Heart size is normal. Solid organs: Liver and spleen are normal in size and enhancement. Gallbladder has been removed. B iliary system is non dilated. Pancreas enhances normally. No adrenal nodules. Kidneys demonstrate normal size and enhancement, without hydronephrosis. Peritoneum and bowel: Bowel loops demonstrate normal wall thickness and caliber. No free fluid or a ir. No inflammatory changes in the mesentery or pericolonic fat. Nodes and vessels: No retroperitoneal or mesenteric adenopathy by size criteria. Aorta and inferior vena cava are normal in size. Miscellaneous: No ventral hernias. PELVIS: Genitourinary: Bladder wall thickness is normal. Miscellaneous: No inguinal hernias or adenopathy. Bones: No suspicious bony lesions. No vertebral body compression fractures. IMPRESSION: No finding to explain abdominal pain. Reviewed by: Basil Moreno MD on 06/12/2020 3:13 PM PST Approved by: Basil Moreno MD on 06/12/2020 3:13 PM PST Station ID: [id number]
== END 2020-06-12 13:42 | disposition home or self-care (01) ==
LOC: DI 13:41
PROVIDERS: ATTEND Surgery
DX: R10.9 Unspecified abdominal pain (principal); G89.29 Other chronic pain
CPT/HCPCS: 74177; Q9967

== ENCOUNTER 2020-09-28 11:54 | Emergency (ER) | payer MEDICAID ==
--- OUTSIDE RECORDS SUMMARY | 2020-09-28 11:58 | EXTERNAL MEDICAL SUMMARY RPT | Continuity of Care Document ---
:1975 Demographics Phone Unavailable Preferred Language [place] Marital Status Unknown Uatsdin Affiliation Unknown Race Unknown Ethnic Group Unknown Author Organization [place] Address [address] [place] [address] Phone Care Team Providers Name Role Phone Young Unavailable Unavailable Allergies Encounters Medications Problems date description facility [id number] Other diseases of stomach and [facility] Results
--- NOTE | 2020-09-28 12:18 | ED Physician Documentation ---
PD HPI ABD PAIN - Stated complaint Stated Complaint: CHEST PX,DIZZY,WEAKNESS - Chief complaint Chief Complaint: Cardiac - History obtained from History obtained from: Patient - Additional information Additional information: 44-year-old woman was seen by her dentist on Monday for a cleaning. She was noted incidentally to have temp 101. She felt fine. The next day, Monday, 2 days ago she was shopping and started to feel weak and dizzy "like my blood sugar was low." She has no history of hypoglycemia. Since then she is had substernal chest pain radiating to the left. It is not associated with shortness of breath, pedal edema, or calf pain. She just feels tired. She does note a weeks worth of night sweats. She has a remote history of alcoholism but has been sober for 3 years. Review of Systems Ten Systems: 10 systems reviewed and negative Constitutional: reports: Fever (3 days ago), Sweats Nose: denies: Rhinorrhea / runny nose Throat: denies: Sore throat Cardiac: reports: Palpitations (recent holter, 1 mo ago, no results yet). 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 - Present Medications Home Medications: Ambulatory Orders Medication Instructions Recorded Confirmed Levothyroxine [Synthroid] 50 mcg PO DAILY 03/19/20 03/19/20 - Allergies Allergies/Adverse Reactions: Allergies Allergy/AdvReac Type Severity Reaction Status Date / Time paroxetine [From Paxil] Allergy Severe Anaphylaxis Verified 09/28/20 12:04 - Social History Does the pt smoke?: No Smoking Status: Never smoker Does the pt drink ETOH?: No Does the pt have substance abuse?: Yes - Immunizations Immunizations are current?: Yes - POLST Patient has POLST: No PD ED PE NORMAL - Vitals Vital signs reviewed: Yes - General General: Alert and oriented X 3, No acute distress - HEENT HEENT: PERRL, EOMI - Neck Neck: Supple, no meningeal sign, No bony TTP - Cardiac Cardiac: RRR, No murmur - Respiratory Respiratory: No respiratory distress, Clear bilaterally - Abdomen Abdomen: Soft, Non tender - Back Back: No CVA TTP, No spinal TTP - Derm Derm: Normal color, Warm and dry - Extremities Extremities: No edema, No calf tenderness / cord - Neuro Neuro: Alert and oriented X 3, Normal speech Results - Vitals Vitals: Vital Signs - 24 hr 09/28/20 11:59 Temperature 36.9 C Heart Rate 100 Respiratory 16 Rate Blood Pressure 125/78 O2 Saturation 99 Oxygen O2 Source Room air - EKG (time done) 1158 Rate: Rate (enter#) (80) Rhythm: NSR [place]: Normal Intervals: Normal NC QRS: Normal Ischemia: Non specific changes (flat anterior t waves) Computer interpretation: Agree with computer - Labs Labs: Laboratory Tests 09/28/20 09/28/20 09/28/20 12:25 12:32 12:32 WBC 5.3 RBC 4.52 Hgb 14.4 Hct 41.9 MCV 92.7 MCH 31.9 H MCHC 34.4 RDW 11.8 L Plt Count 222 MPV 10.2 Neut # (Auto) 3.6 Lymph # (Auto) 1.1 L Sac # (Auto) 0.4 Eos # (Auto) 0.1 Baso # (Auto) 0.0 Absolute Nucleated RBC 0.00 Nucleated RBC % 0.0 Sodium 138 Potassium 3.9 Chloride 102 Carbon Dioxide 28 Anion Gap 8.0 BUN 10 Creatinine 0.6 Estimated GFR (MDRD) 109 Glucose 107 H Calcium 9.1 Magnesium 1.9 Total Bilirubin 0.9 AST 19 ALT 18 Alkaline Phosphatase 53 Troponin I High Sens Total Protein 7.3 Albumin 4.4 Globulin 2.9 Albumin/Globulin Ratio 1.5 Urine Color YELLOW Urine Clarity CLEAR Urine pH 6.0 Ur Specific [place] 1.010 Urine Protein NEGATIVE Urine Glucose (UA) NEGATIVE Urine Ketones NEGATIVE Urine Occult Blood SMALL H Urine Nitrite NEGATIVE Urine Bilirubin NEGATIVE Urine Urobilinogen 0.2 (NORMAL) Ur Leukocyte Esterase NEGATIVE Urine RBC 0-5 Urine WBC 0-3 Ur Squamous Epith Cells RARE Squamous Urine Bacteria Rare Ur Microscopic Review INDICATED Urine Culture Comments NOT INDICATED Urine HCG, Qual NEGATIVE 09/28/20 12:32 WBC RBC Hgb Hct MCV MCH MCHC RDW Plt Count MPV Neut # (Auto) Lymph # (Auto) Sac # (Auto) Eos # (Auto) Baso # (Auto) Absolute Nucleated RBC Nucleated RBC % Sodium Potassium Chloride Carbon Dioxide Anion Gap BUN Creatinine Estimated GFR (MDRD) Glucose Calcium Magnesium Total Bilirubin AST ALT Alkaline Phosphatase Troponin I High Sens < 2.3 L Total Protein Albumin Globulin Albumin/Globulin Ratio Urine Color Urine Clarity Urine pH Ur Specific [place] Urine Protein Urine Glucose (UA) Urine Ketones Urine Occult Blood Urine Nitrite Urine Bilirubin Urine Urobilinogen Ur Leukocyte Esterase Urine RBC Urine WBC Ur Squamous Epith Cells Urine Bacteria Ur Microscopic Review Urine Culture Comments Urine HCG, Qual PD MEDICAL DECISION MAKING - ED course ED course: 44-year-old woman had a fever 3 days ago and not nonspecific symptoms including chest pain, dizziness, muscle aches. Work-up is negative except for mild lymphopenia. She has been completely immunized against Covid having had her second Pfizer shot about 2 months ago. I offered coronavirus testing regardless which she declined. Departure - Departure Disposition: Home, Self Care Clinical Impression: Atypical chest pain Condition: Good Record reviewed to determine appropriate education?: Yes Instructions: ED Chest Pain Atypical Unkn Cause Comments: Today we checked your blood counts, electrolytes, kidney and liver function, urinalysis. All of these were normal and unremarkable. Per your report you have a history of leaky heart valves, thankfully I do not hear a murmur today, but reasonable to follow-up for echocardiography given the history. Call your doctor to arrange a follow-up appointment, make the next available appointment. In the interim, return anytime if worse or if new symptoms develop.
[2020-09-28 12:38] LABS: BASOPHILS % (AUTO) 0.6 %; EOSINOPHILS # (AUTO) 0.1 10^3/uL (0.0-0.7); EOSINOPHILS % (AUTO) 2.1 %; HCT - HEMATOCRIT 41.9 % (37.0-47.0); HGB - HEMOGLOBIN 14.4 g/dL (12.0-16.0); LYMPHOCYTES # (AUTO) 1.1 10^3/uL (1.5-3.5); LYMPHOCYTES % (AUTO) 21.7 %; MEAN CORPUSCULAR HEMOGLOBIN 31.9 pg (27.0-31.0); MEAN CORPUSCULAR HGB CONC 34.4 g/dL (32.0-36.0); MEAN CORPUSCULAR VOLUME 92.7 fL (81.0-99.0); MEAN PLATELET VOLUME 10.2 fL (7.9-10.8); MONOCYTES # (AUTO) 0.4 10^3/uL (0.0-1.0); NEUTROPHILS # (AUTO) 3.6 10^3/uL (1.5-6.6); NEUTROPHILS % (AUTO) 68.4 %; PLT - PLATELET COUNT 222 10^3/uL (130-450); RED BLOOD COUNT 4.52 10^6/uL (4.20-5.40); RED CELL DISTRIBUTION WIDTH 11.8 % (12.0-15.0); WHITE BLOOD COUNT 5.3 x10^3/uL (4.8-10.8)
--- OUTSIDE RECORDS SUMMARY | 2020-09-28 12:43 | EXTERNAL MEDICAL SUMMARY RPT | Continuity of Care Document ---
:1975 Demographics Phone Unavailable Preferred Language Latvian Marital Status Unknown Hoahaoism Affiliation Unknown Race Unknown Ethnic Group Unknown Author Organization [place] Address [address] [phone] Phone Care Team Providers Name Role Phone Stacie Ace Unavailable Unavailable Allergies Encounters Medications Problems date description facility [id number] Other diseases of stomach and [facility] Results
[2020-09-28 12:46] LABS: BILIRUBIN,URINE NEGATIVE (NEGATIVE); GLUCOSE, URINE (UA) NEGATIVE (NEGATIVE); KETONES,URINE (UA) NEGATIVE (NEGATIVE); LEUKOCYTE ESTERASE, URINE NEGATIVE (NEGATIVE); NITRITE,URINE NEGATIVE (NEGATIVE); OCCULT BLOOD,URINE SMALL (NEGATIVE); PROTEIN,URINE NEGATIVE (NEGATIVE); UROBILINOGEN,URINE 0.2 (NORMAL) E.U./dL (NORMAL)
[2020-09-28 12:47] LABS: ALBUMIN 4.4 g/dL (3.2-5.5); ALBUMIN/GLOBULIN RATIO 1.5 (1.0-2.2); BILIRUBIN,TOTAL 0.9 mg/dL (0.2-1.0); CALCIUM 9.1 mg/dL (8.5-10.3); CREATININE 0.6 mg/dL (0.4-1.0); MAGNESIUM 1.9 mg/dL (1.7-2.8); POTASSIUM 3.9 mmol/L (3.5-5.0); TOTAL PROTEIN 7.3 g/dL (6.7-8.2)
[2020-09-28 12:49] LABS: CLARITY,URINE CLEAR (CLEAR); HCG UR QUAL NEGATIVE
[2020-09-28 13:00] LABS: BACTERIA,URINE Rare /HPF (None Seen); RBC,URINE 0-5 /HPF (0-5); SQUAMOUS EPITHELIAL CELL,UR RARE Squamous (<= Few); WBC,URINE 0-3 /HPF (0-5)
[2020-09-28 13:29] VITALS: BP 105/62
== END 2020-09-28 13:28 | disposition home or self-care (01) ==
LOC: ED 11:54
DX: R07.89 Other chest pain (principal); D72.810 Lymphocytopenia; R53.83 Other fatigue; R42 Dizziness and giddiness; R61 Generalized hyperhidrosis
CPT/HCPCS: 36415; 80053; 81001; 81003; 81025; 83735; 84484; 85025; 87086; 93005; 99284

== ENCOUNTER 2020-12-10 07:37 | Outpatient (CLI) | payer MEDICAID | END 2020-12-10 07:38 | disposition home or self-care (01) | LOC: DI 07:37 | PROVIDERS: ATTEND Family Medicine | DX: R00.2 Palpitations (principal) | CPT/HCPCS: 93306 ==

== ENCOUNTER 2021-01-17 10:46 | Emergency (ER) | payer MEDICAID ==
[2021-01-17 11:00] VITALS: BP 103/56
[2021-01-17 11:29] LABS: BILIRUBIN,URINE NEGATIVE (NEGATIVE); CLARITY,URINE CLEAR (CLEAR); GLUCOSE, URINE (UA) NEGATIVE (NEGATIVE); KETONES,URINE (UA) NEGATIVE (NEGATIVE); LEUKOCYTE ESTERASE, URINE MODERATE (NEGATIVE); NITRITE,URINE NEGATIVE (NEGATIVE); OCCULT BLOOD,URINE SMALL (NEGATIVE); PROTEIN,URINE NEGATIVE (NEGATIVE); UROBILINOGEN,URINE 0.2 (NORMAL) E.U./dL (NORMAL)
[2021-01-17 11:32] LABS: HCG UR QUAL NEGATIVE
[2021-01-17 11:55] LABS: BACTERIA,URINE Many /HPF (None Seen); EPITHELIAL CELLS,UR FEW Transitional /HPF (<= Few); RBC,URINE 0-5 /HPF (0-5); SQUAMOUS EPITHELIAL CELL,UR FEW Squamous (<= Few); WBC CLUMPS,URINE PRESENT; WBC,URINE >25 /HPF (0-5)
[2021-01-17] MEDS ORDERED: PHENAZOPYRIDINE 100 MG TABLET PO STA (12:05)
[2021-01-17] MEDS ORDERED: CEFPODOXIME PROXETIL 100 MG TABLET PO STA (12:05)
--- NOTE | 2021-01-17 12:09 | ED Physician Documentation ---
History of Present Illness - Stated complaint Stated Complaint: FEMALE - Chief complaint Chief Complaint: UTI - Additonal information Additional information: 45-year-old female presents emergency department for evaluation of 4 days of dys uria urgency and frequency. No flank pain or fevers. Some nausea but no vomiting. Last urinary tract infection about 2 years ago when she is drinking heavily but she has's stopped drinking. However she reports she is replaced alcohol with soda and wonders if that could be the cause. No recent sexual activity. Denies vaginal bleeding or discharge. Review of Systems Constitutional: denies: Fever, Chills Eyes: reports: Reviewed and negative Ears: denies: Loss of hearing, Ear pain, Drainage/discharge, Tinnitus/ringing, Foreign body, Reviewed and negative, Other Cardiac: reports: Reviewed and negative Respiratory: reports: Reviewed and negative GI: reports: Abdominal Pain, Nausea. denies: Vomiting : reports: Dysuria, Frequency, Hesitancy. 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 : None HEENT: None Psych: None Musculoskeletal: None, Other Derm: None - Past Surgical History Past Surgical History: Yes General: Cholecystectomy Ortho: Spine surgery /DIVINITY TEACHER: Other - Present Medications Home Medications: Ambulatory Orders Medication Instructions Recorded Confirmed Levothyroxine [Synthroid] 50 mcg PO DAILY 03/19/20 03/19/20 Cefpodoxime Proxetil [Vantin] 100 mg PO Q12H #14 tablet 01/17/21 Phenazopyridine HCl [Pyridium] 200 mg PO TID PRN #6 tablet 01/17/21 - Allergies Allergies/Adverse Reactions: Allergies Allergy/AdvReac Type Severity Reaction Status Date / Time paroxetine [From Paxil] Allergy Severe Anaphylaxis Verified 01/17/21 11:00 - Social History Does the pt smoke?: No Smoking Status: Never smoker Does the pt drink ETOH?: No Does the pt have substance abuse?: Yes - Immunizations Immunizations are current?: Yes - POLST Patient has POLST: No PD ED PE NORMAL - General General: Alert and oriented X 3, No acute distress - Neck Neck: Supple, no meningeal sign - Cardiac Cardiac: RRR, No murmur - Abdomen Abdomen: Normal bowel sounds, Soft, Non distended. No: Non tender (suprapubic ttp) - Back Back: No CVA TTP, No spinal TTP Results - Vitals Vitals: Vital Signs - 24 hr 01/17/21 10:56 Temperature 36.2 C L Heart Rate 77 Respiratory 15 Rate Blood Pressure 103/56 L O2 Saturation 99 Oxygen O2 Source Room air - Labs Labs: Laboratory Tests 01/17/21 11:15 Urine Color YELLOW Urine Clarity CLEAR Urine pH 6.0 Ur Specific [place] 1.015 Urine Protein NEGATIVE Urine Glucose (UA) NEGATIVE Urine Ketones NEGATIVE Urine Occult Blood SMALL H Urine Nitrite NEGATIVE Urine Bilirubin NEGATIVE Urine Urobilinogen 0.2 (NORMAL) Ur Leukocyte Esterase MODERATE H Urine RBC 0-5 Urine WBC >25 H Urine WBC Clumps PRESENT Ur Epithelial Cells FEW Transitional Ur Squamous Epith Cells FEW Squamous Urine Bacteria Many H Ur Microscopic Review INDICATED Urine Culture Comments INDICATED Urine HCG, Qual NEGATIVE PD MEDICAL DECISION MAKING - ED course Complexity details: reviewed results, re-evaluated patient, d/w patient ED course: 45-year-old female presents emergency department for evaluation of dysuria urgency and frequency. No fevers. UA is consistent with acute cystitis. Given lack of fevers flank or CVA tenderness lower suspicion for ascending infection or John. Patient will be started on Cefpodoxime. Advise close follow-up with PCP. Emergent return precautions discussed. Departure - Departure Disposition: 01 Home, Self Care Clinical Impression: UTI (urinary tract infection) Qualifiers: Urinary tract infection type: acute cystitis Hematuria presence: without hematuria Qualified Code(s): N30.00 - Acute cystitis without hematuria Condition: Stable Record reviewed to determine appropriate education?: Yes Instructions: ED UTI Cystitis Female Prescriptions: Phenazopyridine HCl [Pyridium] 200 mg PO TID PRN #6 tablet PRN Reason: dysuria Cefpodoxime Proxetil [Vantin] 100 mg PO Q12H #14 tablet Comments: Gail you do have a urinary tract infection. Your first dose of antibiotic was given today in the emergency department. Please fill the prescription this afternoon and begin taking twice daily for the next 7 days. I have prescribed the Pyridium. I am sure you are aware will cause your urine to turn orange. If your symptoms are not improving over the next 48 hours, or you develop fevers or have uncontrolled vomiting please return immediately to the ER for second evaluation.
== END 2021-01-17 12:23 | disposition home or self-care (01) ==
LOC: ED 10:46
DX: N30.00 Acute cystitis without hematuria (principal)
CPT/HCPCS: 81001; 81025; 87086; 87181; 99283; A9270; 81003

== ENCOUNTER 2021-02-15 09:25 | Outpatient (CLI) | payer MEDICAID ==
[2021-02-15 10:05] LABS: ALBUMIN/GLOBULIN RATIO 1.4 (1.0-2.2); ALKALINE PHOSPHATASE 44 IU/L (42-121); ALT ALANINE AMINOTRANSFERASE 16 IU/L (10-60); AST ASPARTATE AMINOTRANSFERASE 19 IU/L (10-42); BILIRUBIN,TOTAL 0.8 mg/dL (0.2-1.0); BUN - BLOOD UREA NITROGEN 12 mg/dL (6-20); CARBON DIOXIDE - CO2 27 mmol/L (21-32); CHLORIDE 102 mmol/L (101-111); CHOL/HDL RATIO 3.8 (<4.4); CHOLESTEROL 211 mg/dL; CREATININE 0.5 mg/dL (0.4-1.0); GFR - MDRD 134 (>89); GLUCOSE 96 mg/dL (70-100); HDL CHOLESTEROL 56 mg/dL; LDL CHOLESTEROL,CALCULATED 134 mg/dL; LDL/HDL RATIO 2.4 (<4.4); POTASSIUM 4.2 mmol/L (3.5-5.0); SODIUM 136 mmol/L (135-145); TOTAL PROTEIN 6.8 g/dL (6.7-8.2); TRIGLYCERIDES 106 mg/dL; VLDL CHOLESTEROL 21 mg/dL
[2021-02-15 10:17] LABS: THYROID STIMULATING HORMONE 2.6 uIU/mL (0.34-5.60)
== END 2021-02-15 09:26 | disposition home or self-care (01) ==
LOC: LAB 09:25
PROVIDERS: ATTEND Physician Assistant Medical
DX: Z00.00 Encounter for general adult medical examination without abnormal findings (principal); E03.9 Hypothyroidism, unspecified
CPT/HCPCS: 36415; 80053; 80061; 83721; 84443

== ENCOUNTER 2021-04-26 13:02 | Outpatient (CLI) | payer MEDICAID ==
--- NOTE | 2021-04-27 17:27 | Mammography Report ---
BILATERAL DIGITAL SCREENING MAMMOGRAM 3D/2D WITH AUGMENTATION: 04/26/2021 CLINICAL: Routine screening. Comparison is made to exam dated: 02/08/2017 mammogram - [facility]. The tissue o f both breasts is heterogeneously dense. This may lower the sensitivity of mammography. Bilateral breast implants are stable and intact. No significant masses, calcifications, or other findings are seen in either breast. There has been no significant interval change. IMPRESSION: NEGATIVE There is no mammographic evidence of malignancy. A 1 year screening mammogram is recommended. This exam was interpreted at Station ID: [id number]. NOTE: For mammograms, a report in lay terms will be sent to the patient. Approximately 15% of breast malignancies will not be visualized mammographically. In the management of a palpable breast mass, a negative mammogram must not discourage biopsy of a clinically suspicious lesion. Electronically Signed By: Kavon Aparicio M.D. slc/penrad:04/26/2021 14:58:21 ACR BI-RADS Category 1: Negative [id number] PARENCHYMAL PATTERN: (D) - The breast(s) demonstrate(s) heterogeneously dense fibroglandular theo gates. BI-RADS CATEGORY: (1) - 1 RECOMMENDATION: (ANNUAL) - Recommend routine annual screening mammography. [id number] 1 year screening LATERALITY: (B)
== END 2021-04-26 13:03 | disposition home or self-care (01) ==
LOC: DI 13:02
DX: Z12.31 Encounter for screening mammogram for malignant neoplasm of breast (principal)

== ENCOUNTER 2021-09-14 08:00 | Outpatient (CLI) | payer MEDICAID ==
[2021-09-14 17:44] LABS: BASOPHILS % (AUTO) 0.6 %; EOSINOPHILS # (AUTO) 0.1 10^3/uL (0.0-0.7); EOSINOPHILS % (AUTO) 1.8 %; HCT - HEMATOCRIT 40.2 % (37.0-47.0); HGB - HEMOGLOBIN 13.6 g/dL (12.0-16.0); LYMPHOCYTES # (AUTO) 1.3 10^3/uL (1.5-3.5); LYMPHOCYTES % (AUTO) 25.1 %; MEAN CORPUSCULAR HEMOGLOBIN 31.5 pg (27.0-31.0); MEAN CORPUSCULAR HGB CONC 33.8 g/dL (32.0-36.0); MEAN CORPUSCULAR VOLUME 93.1 fL (81.0-99.0); MEAN PLATELET VOLUME 11.4 fL (7.9-10.8); MONOCYTES # (AUTO) 0.4 10^3/uL (0.0-1.0); MONOCYTES % (AUTO) 7.1 %; NEUTROPHILS # (AUTO) 3.3 10^3/uL (1.5-6.6); PLT - PLATELET COUNT 210 10^3/uL (130-450); RED BLOOD COUNT 4.32 10^6/uL (4.20-5.40); WHITE BLOOD COUNT 5.1 x10^3/uL (4.8-10.8)
[2021-09-14 17:55] LABS: CREATININE 0.7 mg/dL (0.4-1.0); POTASSIUM 3.9 mmol/L (3.5-5.0)
[2021-09-14 21:20] LABS: ESTIMATED AVERAGE GLUCOSE 100 mg/dL (70-100); HEMOGLOBIN A1c% 5.1 % (4.27-6.07)
== END 2021-09-14 23:59 | disposition home or self-care (01) ==
LOC: LAB.N 08:00
PROVIDERS: ATTEND Physician Assistant Medical
DX: R53.83 Other fatigue (principal)
CPT/HCPCS: 36415; 80048; 83036; 84443; 85025

== ENCOUNTER 2021-10-24 19:06 | Emergency (ER) | payer MEDICAID ==
[2021-10-24 19:23] VITALS: BP 107/46
[2021-10-24] MEDS ORDERED: lidocaine 1% 20 ML MDV SUBQ ONE (19:34)
[2021-10-24] MEDS ORDERED: BACITRACIN ZINC OINT 1 PACKET TOP STA (19:35)
--- NOTE | 2021-10-24 19:57 | ED Physician Documentation ---
History of Present Illness - Stated complaint Stated Complaint: RT FINGER LAC - Chief complaint Chief Complaint: Laceration - Additonal information Additional information: 46-year-old female presents emergency department for evaluation of a right middle finger laceration sustained when opening a tin can at home. Tetanus is up-to-date. 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 : None HEENT: None Psych: None Musculoskeletal: None, Other Derm: None - Past Surgical History Past Surgical History: Yes General: Cholecystectomy Ortho: Spine surgery /SEARCH SPECIALIST: Other - Present Medications Home Medications: Ambulatory Orders Medication Instructions Recorded Confirmed Levothyroxine [Synthroid] 50 mcg PO DAILY 03/19/20 10/24/21 - Allergies Allergies/Adverse Reactions: Allergies Allergy/AdvReac Type Severity Reaction Status Date / Time paroxetine [From Paxil] Allergy Severe Anaphylaxis Verified 10/24/21 19:23 - Social History Does the pt smoke?: No Smoking Status: Never smoker Does the pt drink ETOH?: No Does the pt have substance abuse?: Yes - Immunizations Immunizations are current?: Yes - POLST Patient has POLST: No PD ED PE EXPANDED - Extremities Extremities: Right finger(s) ("C" shaped avulsion laceration on dorsum of right hand between PIP and DIP joint. Preserved flexion extension. Bleeding controlled with pressure.) Results - Vitals Vitals: Vital Signs - 24 hr 10/24/21 19:20 Temperature 36.6 C Heart Rate 65 Respiratory 16 Rate Blood Pressure 107/46 L O2 Saturation 100 Oxygen O2 Source Room air Procedures - Laceration (location) right middle finger Length in cm: 2 Wound type: Curved, Irregular, Into subcut fat Neurovascular status: Sensory intact, Motor intact Tendon involvement: Tendon intact Anesthesia: Lidocaine 1% Wound preparation: Chlorhexadine, Irrigated copiously NS Skin layer closure: Interrupted, Size #-0 - enter number (4), Sutures - enter # (3) Other: Patient tolerated well, No complications, Neurovascular intact, Tetanus UTD PD MEDICAL DECISION MAKING - ED course Complexity details: considered differential, d/w patient ED course: 46-year-old female presents emergency department for a C shaped laceration to the dorsum of her right hand sustained when opening a tin can. Tetanus is up-to-date. Wound was closed easily with 3 sutures. No evidence of tendon injury otherwise neurovascular intact. Routine wound care and emergent return precautions discussed. Departure - Departure Disposition: 01 Home, Self Care Clinical Impression: Finger laceration Qualifiers: Encounter type: initial encounter Finger: middle finger Damage to nail status: without damage Foreign body presence: without foreign body Laterality: right Qualified Code(s): S61.212A - Laceration without foreign body of right middle finger without damage to nail, initial encounter Condition: Stable Record reviewed to determine appropriate education?: Yes Instructions: ED Laceration Hand Comments: Your suture(s) should be removed in 7 to 10 days. In 24 hours you may remove the dressing wash gently with warm soap and water, apply any antibiotic ointment and a simple bandage. Your tetanus is up-to-date. Please attempt to keep your wound clean and dry. Do not submerge it in dirty dishwater or bath water. Return to the emergency department if you have any concerns of infection such as redness, fevers milky drainage increased pain.
== END 2021-10-24 20:02 | disposition home or self-care (01) ==
LOC: ED 19:06
DX: S61.212A Laceration without foreign body of right middle finger without damage to nail, initial encounter (principal); W26.8XXA Contact with other sharp object(s), not elsewhere classified, initial encounter; Y93.G9 Activity, other involving cooking and grilling
CPT/HCPCS: 12001; 99281; A9270

== ENCOUNTER 2022-05-19 10:35 | Emergency (ER) | payer MEDICAID ==
[2022-05-19 11:10] LABS: HCT - HEMATOCRIT 40.7 % (37.0-47.0); HGB - HEMOGLOBIN 13.6 g/dL (12.0-16.0); MEAN CORPUSCULAR HEMOGLOBIN 30.8 pg (27.0-31.0); MEAN CORPUSCULAR HGB CONC 33.4 g/dL (32.0-36.0); MEAN CORPUSCULAR VOLUME 92.1 fL (81.0-99.0); MEAN PLATELET VOLUME 10.3 fL (7.9-10.8); PLT - PLATELET COUNT 202 10^3/uL (130-450); RED BLOOD COUNT 4.42 10^6/uL (4.20-5.40); RED CELL DISTRIBUTION WIDTH 11.8 % (12.0-15.0); WHITE BLOOD COUNT 5.5 x10^3/uL (4.8-10.8)
[2022-05-19 11:11] LABS: BASOPHILS % (AUTO) 0.4 %; EOSINOPHILS # (AUTO) 0.1 10^3/uL (0.0-0.7); EOSINOPHILS % (AUTO) 1.5 %; LYMPHOCYTES # (AUTO) 1.5 10^3/uL (1.5-3.5); LYMPHOCYTES % (AUTO) 27.2 %; MONOCYTES # (AUTO) 0.4 10^3/uL (0.0-1.0); MONOCYTES % (AUTO) 7.7 %; NEUTROPHILS # (AUTO) 3.4 10^3/uL (1.5-6.6); NEUTROPHILS % (AUTO) 62.8 %
[2022-05-19 11:21] LABS: ALBUMIN 4.3 g/dL (3.2-5.5); ALBUMIN/GLOBULIN RATIO 1.3 (1.0-2.2); BILIRUBIN,TOTAL 0.8 mg/dL (0.2-1.0); CALCIUM 8.7 mg/dL (8.5-10.3); CREATININE 0.6 mg/dL (0.4-1.0); POTASSIUM 3.9 mmol/L (3.5-5.0); TOTAL PROTEIN 7.5 g/dL (6.7-8.2)
--- NOTE | 2022-05-19 13:30 | ED Physician Documentation ---
History of Present Illness - Stated complaint Stated Complaint: BLOOD IN STOOL - Chief complaint Chief Complaint: General - History obtained from History obtained from: Patient - Additonal information Additional information: Patient is a 46-year-old female presenting for evaluation of blood in her stool. She has noticed blood intermittently in her stools for the last month. She has had a prior colonoscopy with Dr. Dinero 3 yrs ago and is scheduled for another one in 2 years. She was found to have a polyp at that time. She does not take a blood thinner. She denies abdominal discomfort. She again noticed blood streaking in her stool this morning. She called her PCP for a follow-up appointment and the nurse directed her to the emergency department for evaluation. She denies dizziness, lightheadedness, chest pain, difficulty breathing, blood in her urine. Review of Systems Constitutional: denies: Fever Cardiac: denies: Chest pain / pressure Respiratory: denies: Dyspnea GI: reports: Bloody / black stool. 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 : None HEENT: None Psych: None Musculoskeletal: None, Other Derm: None - Past Surgical History Past Surgical History: Yes General: Cholecystectomy Ortho: Spine surgery /SENIOR PARALEGAL: Other - Present Medications Home Medications: Ambulatory Orders Medication Instructions Recorded Confirmed Levothyroxine [Synthroid] 50 mcg PO DAILY 03/19/20 10/24/21 - Allergies Allergies/Adverse Reactions: Allergies Allergy/AdvReac Type Severity Reaction Status Date / Time paroxetine [From Paxil] Allergy Severe Anaphylaxis Verified 05/19/22 10:50 - Social History Does the pt smoke?: No Smoking Status: Never smoker Does the pt drink ETOH?: No Does the pt have substance abuse?: Yes - Immunizations Immunizations are current?: Yes - POLST Patient has POLST: No PD ED PE NORMAL - General General: Alert and oriented X 3, No acute distress, Well developed/nourished - HEENT HEENT: Atraumatic - Neck Neck: Supple, no meningeal sign - Cardiac Cardiac: RRR - Respiratory Respiratory: No respiratory distress, Clear bilaterally - Abdomen Abdomen: Soft, Non tender, Non distended - Rectal Rectal: Deferred - Derm Derm: Warm and dry Results - Vitals Vitals: Vital Signs - 24 hr 05/19/22 05/19/22 10:45 13:34 Temperature 36.9 C Heart Rate 75 67 Respiratory 16 16 Rate Blood Pressure 107/61 104/57 L O2 Saturation 100 100 Oxygen O2 Source Room air - Labs Labs: Laboratory Tests 05/19/22 05/19/22 11:03 11:03 WBC 5.5 RBC 4.42 Hgb 13.6 Hct 40.7 MCV 92.1 MCH 30.8 MCHC 33.4 RDW 11.8 L Plt Count 202 MPV 10.3 Neut # (Auto) 3.4 Lymph # (Auto) 1.5 [place] # (Auto) 0.4 Eos # (Auto) 0.1 Baso # (Auto) 0.0 Absolute Nucleated RBC 0.00 Nucleated RBC % 0.0 Sodium 134 L Potassium 3.9 Chloride 97 L Carbon Dioxide 25 Anion Gap 12.0 BUN 11 Creatinine 0.6 Estimated GFR (MDRD) 108 Glucose 105 H Calcium 8.7 Total Bilirubin 0.8 AST 17 ALT 13 Alkaline Phosphatase 44 Total Protein 7.5 Albumin 4.3 Globulin 3.2 Albumin/Globulin Ratio 1.3 Lipase 35 PD Medical Decision Making - ED course Complexity details: re-evaluated patient, d/w patient ED course: Patient presenting for evaluation of intermittent episodes of blood in her stools for the last month. She has had a prior colonoscopy. Her abdominal exam is benign. Her vital signs are stable and her labs are reviewed and unremarkable. I do not think abdominal imaging is helpful at this time as she has no pain. I did offer a rectal exam but patient understands that this will likely not change our current plan which is close outpatient follow-up with her surgeon for colonoscopy. Patient is advised on concerning symptoms to return for. Departure - Departure Disposition: 01 Home, Self Care Clinical Impression: Blood in stool Condition: Stable Instructions: ED Hematochezia Stable Follow-Up: Alec Dinero MD [Provider Admit Priv/Credential] - Comments: Please follow-up with Dr. Dinero office regarding the blood in your stool. I would also reach back out to your primary care doctor. If you notice any worsening symptoms such as pain, dizziness, increased episodes or have any other concerns please consider return to the emergency department. Your blood levels and vital signs here are stable today. Discharge Date/Time: 05/19/22 13:35
[2022-05-19 13:35] VITALS: BP 104/57
== END 2022-05-19 13:35 | disposition home or self-care (01) ==
LOC: ED 10:35
DX: K92.1 Melena (principal)
CPT/HCPCS: 36415; 80053; 83690; 85025; 99282; 99283

== ENCOUNTER 2022-05-27 11:15 | Outpatient (CLI) | payer MEDICAID ==
[2022-05-27 18:07] LABS: BASOPHILS % (AUTO) 0.5 %; EOSINOPHILS # (AUTO) 0.1 10^3/uL (0.0-0.7); EOSINOPHILS % (AUTO) 1.1 %; HCT - HEMATOCRIT 43.7 % (37.0-47.0); HGB - HEMOGLOBIN 14.3 g/dL (12.0-16.0); LYMPHOCYTES # (AUTO) 1.7 10^3/uL (1.5-3.5); LYMPHOCYTES % (AUTO) 29.2 %; MEAN CORPUSCULAR HEMOGLOBIN 30.7 pg (27.0-31.0); MEAN CORPUSCULAR HGB CONC 32.7 g/dL (32.0-36.0); MEAN CORPUSCULAR VOLUME 93.8 fL (81.0-99.0); MEAN PLATELET VOLUME 11.1 fL (7.9-10.8); MONOCYTES # (AUTO) 0.3 10^3/uL (0.0-1.0); NEUTROPHILS # (AUTO) 3.6 10^3/uL (1.5-6.6); NEUTROPHILS % (AUTO) 62.8 %; PLT - PLATELET COUNT 230 10^3/uL (130-450); RED BLOOD COUNT 4.66 10^6/uL (4.20-5.40); RED CELL DISTRIBUTION WIDTH 11.9 % (12.0-15.0); WHITE BLOOD COUNT 5.7 x10^3/uL (4.8-10.8)
[2022-05-27 18:28] LABS: ALBUMIN 4.3 g/dL (3.2-5.5); ALBUMIN/GLOBULIN RATIO 1.3 (1.0-2.2); ALKALINE PHOSPHATASE 50 IU/L (42-121); ALT ALANINE AMINOTRANSFERASE 19 IU/L (10-60); AST ASPARTATE AMINOTRANSFERASE 21 IU/L (10-42); BILIRUBIN,TOTAL 0.8 mg/dL (0.2-1.0); BUN - BLOOD UREA NITROGEN 10 mg/dL (6-20); CALCIUM 10.1 mg/dL (8.5-10.3); CARBON DIOXIDE - CO2 27 mmol/L (21-32); CHLORIDE 102 mmol/L (101-111); CREATININE 0.5 mg/dL (0.4-1.0); GFR - MDRD 133 (>89); GLUCOSE 110 mg/dL (70-100); LIPASE 33 U/L (22-51); POTASSIUM 4.1 mmol/L (3.5-5.0); SODIUM 140 mmol/L (135-145); TOTAL PROTEIN 7.5 g/dL (6.7-8.2)
[2022-05-27 19:00] LABS: FOLLICLE STIMULATING HORMONE 8.77 mIU/mL
[2022-05-27 19:01] LABS: LUTEINIZING HORMONE 4.79 mIU/mL
[2022-05-27 19:18] LABS: CRP - C-REACTIVE PROTEIN < 1.0 mg/dL (0-1.0)
== END 2022-05-27 11:30 | disposition home or self-care (01) ==
LOC: LAB.N 11:15
PROVIDERS: ATTEND Registered Nurse
DX: R07.89 Other chest pain (principal); R23.2 Flushing; N95.1 Menopausal and female climacteric states; K21.9 Gastro-esophageal reflux disease without esophagitis
CPT/HCPCS: 36415; 80053; 82670; 83001; 83002; 83690; 84403; 85025; 86140

== ENCOUNTER 2022-06-10 10:03 | Emergency (ER) | payer MEDICAID ==
[2022-06-10 10:15] VITALS: BP 141/75
--- NOTE | 2022-06-10 10:24 | ED Physician Documentation ---
PD HPI NECK PAIN - Stated complaint Stated Complaint: L NECK PX - Chief complaint Chief Complaint: General - History obtained from History obtained from: Patient - History of Present Illness Timing - onset: How many days ago (2) Timing - duration: Days (2) Timing - details: Gradual onset, Still present Location: Upper, Mid, Right, Other (extends to behind/around right ear and right occipital area, right medial clavicular area.) Quality: Pain, Aching Associated symptoms: No: Fever, Weakness, Numbness Worsened by: Movement, Palpation Contributing factors: No: Lifting, Twisting, Trauma Similar symptoms before: Has not had sx before Recently seen: Not recently seen Review of Systems Constitutional: denies: Fever, Chills Nose: denies: Rhinorrhea / runny nose, Congestion Throat: denies: Sore throat Respiratory: denies: Cough Skin: denies: Rash, Lesions Musculoskeletal: reports: Neck pain Neurologic: denies: Focal weakness, Numbness PD PAST MEDICAL HISTORY - Past Medical History Cardiovascular: None Respiratory: None Neuro: None Endocrine/Autoimmune: HyPOthyroidism GI: GI bleed, Chronic constipation 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 : None HEENT: None Psych: None Musculoskeletal: None, Other Derm: None - Past Surgical History Past Surgical History: Yes General: Cholecystectomy Ortho: Spine surgery /AUTOMOBILE RELOCATION ENGINEER: Other - Present Medications Home Medications: Ambulatory Orders Medication Instructions Recorded Confirmed Levothyroxine [Synthroid] 50 mcg PO DAILY 03/19/20 10/24/21 dexAMETHasone [Decadron] 4 mg PO DAILY #5 tablet 06/10/22 methocarbamoL [Robaxin] 500 mg PO Q6H PRN #20 tablet 06/10/22 valACYclovir [Valtrex] 1,000 mg PO TID 5 Days #30 tablet 06/10/22 - Allergies Allergies/Adverse Reactions: Allergies Allergy/AdvReac Type Severity Reaction Status Date / Time paroxetine [From Paxil] Allergy Severe Anaphylaxis Verified 06/10/22 10:13 - Social History Does the pt smoke?: No Smoking Status: Never smoker Does the pt drink ETOH?: No Does the pt have substance abuse?: Yes - Immunizations Immunizations are current?: Yes - POLST Patient has POLST: No PD ED PE NORMAL - Vitals Vital signs reviewed: Yes - General General: Alert and oriented X 3, No acute distress, Well developed/nourished - HEENT HEENT: PERRL, EOMI, Ears normal (normal tm and canal. sensitive to have the speculum in the canal though. ) - Neck Neck: Supple, no meningeal sign, No adenopathy, Other (tender in upper trapezius and occipital ridge and even about on occipital scalp to waxing machine operator helper touch as well as firmer palpation. no rash nor sores. ) - Cardiac Cardiac: RRR, No murmur - Respiratory Respiratory: Clear bilaterally - Derm Derm: Normal color, Warm and dry, No rash - Neuro Neuro: Alert and oriented X 3, internet project manager 2-12 intact, No motor deficit, No sensory deficit, Normal speech Results - Vitals Vitals: Vital Signs - 24 hr 06/10/22 10:09 Temperature 36.7 C Heart Rate 91 Respiratory 16 Rate Blood Pressure 141/75 H O2 Saturation 100 Oxygen O2 Source Room air PD Medical Decision Making - ED course Complexity details: considered differential (the pattern of the pain and skin sensitivity/ tenderness is fairly consistent with C2 nerve distribution. Consider developing shingles versus nerve impingement or other cause.), d/w patient Departure - Departure Disposition: 01 Home, Self Care Clinical Impression: Head pain, Neck pain on right side Condition: Stable Record reviewed to determine appropriate education?: Yes Instructions: ED Neck Pain No Trauma Follow-Up: Stacie Ace PA-C [Primary Care Provider] - Prescriptions: dexAMETHasone [Decadron] 4 mg PO DAILY #5 tablet methocarbamoL [Robaxin] 500 mg PO Q6H PRN #20 tablet PRN Reason: Spasms valACYclovir [Valtrex] 1,000 mg PO TID 5 Days #30 tablet Comments: This sounds like an irritation of the nerve root in the upper neck. This could be mechanical such as a muscle spasm with some pinched nerve. Given the ringing in your ear as well, I am more inclined to think a slightly deeper irritation of the nerve in that area and I am thinking this will be an early presentation of shingles. At this point I would treat it with anti-inflammatory of Decadron daily for the next 5 to 7 days. To that add Tylenol every 4-6 hours if needed for pains and you could add a small amount of ibuprofen or naproxen every 8 hours if needed for pain as well. Heat and stretching for the area for muscles and you could add methocarbamol if needed for muscle spasms or stiffness. See what happens in the next day or 2. If you have increasing sensitivity of the skin or you develop a rash (or both) or just persisting symptoms, then add the Jailyn acyclovir your antiviral medicine for presumed shingles. If this just improves over the next few days and it may have been just musculoskeletal and no further treatment needed. I sent your prescriptions to your preferred [facility] pharmacy. Follow-up for recheck to the ER or walk-in if considerably worse despite the medications or if you develop other symptoms out of the area or unrelated to that nerve pattern (the other side of the head or neck, weakness of the face, trouble swallowing, vision loss, localized weakness etc.) Discharge Date/Time: 06/10/22 11:09
[2022-06-10] MEDS ORDERED: CHERRY SYRUP 10 ML UDC PO ONE (10:53)
[2022-06-10] MEDS ORDERED: ACETAMINOPHEN 325 MG TABLET PO STA (10:53)
[2022-06-10] MEDS ORDERED: DEXAMETHASONE 10 MG/ML VIAL PO STA (10:53)
[2022-06-10] MEDS ORDERED: NAPROXEN 250 MG TABLET PO STA (10:56)
== END 2022-06-10 11:09 | disposition home or self-care (01) ==
LOC: ED 10:03
DX: M54.2 Cervicalgia (principal); R51.9 Headache, unspecified
CPT/HCPCS: 99283; 99284; A9270

== ENCOUNTER 2023-02-01 09:04 | Outpatient (CLI) | payer MEDICAID ==
[2023-02-01 09:20] LABS: BASOPHILS % (AUTO) 0.5 %; EOSINOPHILS # (AUTO) 0.1 10^3/uL (0.0-0.7); EOSINOPHILS % (AUTO) 1.8 %; HCT - HEMATOCRIT 39.7 % (37.0-47.0); HGB - HEMOGLOBIN 13.5 g/dL (12.0-16.0); LYMPHOCYTES # (AUTO) 1.4 10^3/uL (1.5-3.5); LYMPHOCYTES % (AUTO) 37.4 %; MEAN CORPUSCULAR HEMOGLOBIN 31.3 pg (27.0-31.0); MEAN CORPUSCULAR VOLUME 91.9 fL (81.0-99.0); MONOCYTES # (AUTO) 0.3 10^3/uL (0.0-1.0); MONOCYTES % (AUTO) 8.7 %; NEUTROPHILS % (AUTO) 51.6 %; PLT - PLATELET COUNT 204 10^3/uL (130-450); RED BLOOD COUNT 4.32 10^6/uL (4.20-5.40); RED CELL DISTRIBUTION WIDTH 11.6 % (12.0-15.0); WHITE BLOOD COUNT 3.8 x10^3/uL (4.8-10.8)
[2023-02-01 09:45] LABS: ALBUMIN 4.1 g/dL (3.2-5.5); ALBUMIN/GLOBULIN RATIO 1.9 (1.0-2.2); ALKALINE PHOSPHATASE 47 IU/L (42-121); ALT ALANINE AMINOTRANSFERASE 11 IU/L (10-60); AST ASPARTATE AMINOTRANSFERASE 15 IU/L (10-42); BUN - BLOOD UREA NITROGEN 10 mg/dL (6-20); CALCIUM 9.2 mg/dL (8.5-10.3); CARBON DIOXIDE - CO2 31 mmol/L (21-32); CHLORIDE 103 mmol/L (101-111); CHOL/HDL RATIO 3.4 (<4.4); CHOLESTEROL 194 mg/dL; CREATININE 0.5 mg/dL (0.6-1.3); GFR - MDRD 133 (>89); GLUCOSE 95 mg/dL (74-104); HDL CHOLESTEROL 57 mg/dL; LDL CHOLESTEROL,CALCULATED 121 mg/dL; LDL/HDL RATIO 2.1 (<4.4); POTASSIUM 4.2 mmol/L (3.5-4.5); SODIUM 137 mmol/L (135-145); TOTAL PROTEIN 6.3 g/dL (6.4-8.9); TRIGLYCERIDES 80 mg/dL (48-352); VLDL CHOLESTEROL 16 mg/dL
[2023-02-01 10:01] LABS: THYROID STIMULATING HORMONE 3.89 uIU/mL (0.34-5.60)
== END 2023-02-01 09:05 | disposition home or self-care (01) ==
LOC: LAB 09:04
PROVIDERS: ATTEND Physician Assistant Medical
DX: Z00.00 Encounter for general adult medical examination without abnormal findings (principal); E03.9 Hypothyroidism, unspecified
CPT/HCPCS: 36415; 80053; 80061; 83721; 84443; 85025

== ENCOUNTER 2023-02-22 13:35 | Outpatient (CLI) | payer MEDICAID ==
--- NOTE | 2023-02-22 16:24 | Ultrasound Report ---
PROCEDURE: Pelvic w/Transvaginal INDICATIONS: MENORRHAGIA TECHNIQUE: Real-time scanning was performed of the pelvic organs, with image documentation. Additional endovagi nal scanning was necessary due to incomplete visualization of the adnexal and endometrial structures by transabdominal scanning. COMPARISON: None. FINDINGS: Uterus: Uterus is retroverted and normal in size at 8.4 x 4.8 x 4.7 cm. The myometrium is heterogen eous. The endometrium measures 10 mm in combined thickness. Ovaries: The right ovary measures 2.6 x 1.6 x 1.4 cm, with a calculated ovarian volume of 3 cc. The left ovary measures 3.5 x 2.4 x 1.9 cm, with a calculated ovarian volume of 8.3 cc. The ovaries hav e a normal sonographic appearance. Greater than 12 follicles can be seen in each ovary. No adnexal masses are seen. No cystic lesions measuring greater than 3 cm. Other: No pathologic free abdominal or pelvic fluid. IMPRESSION: 1. Thickened endometrium at 1 cm. This finding should be correlated with the patient's menstrual hist ory. 2. Greater than 10 follicles involving each ovary. Reviewed by: Inder Ness MD on 02/22/2023 4:23 PM PST Approved by: Inder Ness MD on 02/22/2023 4:23 PM PST Station ID: [id number]
== END 2023-02-22 13:36 | disposition home or self-care (01) ==
LOC: DI 13:35
PROVIDERS: ATTEND Physician Assistant Medical
DX: N92.0 Excessive and frequent menstruation with regular cycle (principal); R93.89 Abnormal findings on diagnostic imaging of other specified body structures

== ENCOUNTER 2023-03-08 08:00 | Outpatient (CLI) | payer MEDICAID ==
[2023-03-08 17:57] LABS: BILIRUBIN,URINE NEGATIVE (NEGATIVE); GLUCOSE, URINE (UA) NEGATIVE (NEGATIVE); KETONES,URINE (UA) NEGATIVE (NEGATIVE); LEUKOCYTE ESTERASE, URINE NEGATIVE (NEGATIVE); NITRITE,URINE NEGATIVE (NEGATIVE); OCCULT BLOOD,URINE TRACE-INTA (NEGATIVE); PH,URINE 5.5 PH (5.0-7.5); PROTEIN,URINE NEGATIVE (NEGATIVE); UROBILINOGEN,URINE 0.2 (NORMAL) E.U./dL (NORMAL)
[2023-03-08 18:02] LABS: CLARITY,URINE CLEAR (CLEAR)
== END 2023-03-08 23:59 | disposition home or self-care (01) ==
LOC: LAB 08:00
PROVIDERS: ATTEND Physician Assistant
DX: R30.0 Dysuria (principal)
CPT/HCPCS: 81001; 81003; 87086

== ENCOUNTER 2023-03-09 15:50 | Emergency (ER) | payer MEDICAID ==
[2023-03-09 16:05] VITALS: BP 127/66; O2SAT 100
[2023-03-09] MEDS ORDERED: IBUPROFEN 600 MG TABLET PO STA (16:07)
--- NOTE | 2023-03-09 16:07 | ED Physician Documentation ---
History of Present Illness - Stated complaint Stated Complaint: - Chief complaint Chief Complaint: General - History obtained from History obtained from: Patient - Additonal information Additional information: Otherwise healthy 47-year-old woman with history of hypothyroidism. Has been perimenopausal for the last year. Recent had symptoms of UTI with urinary frequency, burning. Went to the clinic and had a negative UA. Subsequently has also been having heavy menses recently and had an ultrasound couple of weeks ago showing thickened endometrium and multiple follicles on both sides. Today her menses started and immediately developed severe burning pain in the vagina. There is no other discharge. She never had this before. PD PAST MEDICAL HISTORY - Past Medical History Past Medical History: Yes Cardiovascular: None Respiratory: None Neuro: None Endocrine/Autoimmune: HyPOthyroidism GI: GI bleed, Chronic constipation CERTIFIER: None : None HEENT: None Psych: None Musculoskeletal: None, Other Derm: None - Past Surgical History Past Surgical History: Yes General: Cholecystectomy Ortho: Spine surgery /CERTIFIER: Other - Present Medications Home Medications: Ambulatory Orders Medication Instructions Recorded Confirmed Levothyroxine [Synthroid] 50 mcg PO DAILY 03/19/20 10/24/21 dexAMETHasone [Decadron] 4 mg PO DAILY #5 tablet 06/10/22 methocarbamoL [Robaxin] 500 mg PO Q6H PRN #20 tablet 06/10/22 valACYclovir [Valtrex] 1,000 mg PO TID 5 Days #30 tablet 06/10/22 Doxycycline [Vibramycin] 100 mg PO BID #14 tablet 03/09/23 - Allergies Allergies/Adverse Reactions: Allergies Allergy/AdvReac Type Severity Reaction Status Date / Time paroxetine [From Paxil] Allergy Severe Anaphylaxis Verified 03/09/23 15:55 - Social History Does the pt smoke?: No Smoking Status: Never smoker Does the pt drink ETOH?: No Does the pt have substance abuse?: Yes - Immunizations Immunizations are current?: Yes - POLST Patient has POLST: No PD ED PE NORMAL - Vitals Vital signs reviewed: Yes - General General: Alert and oriented X 3, No acute distress - Abdomen Abdomen: Normal bowel sounds, Soft, Non tender - Female Female : 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), Other (Sm blood in vault, + cervicitis but no CMT) - Neuro Neuro: Alert and oriented X 3, Normal speech Results - Vitals Vitals: Vital Signs - 24 hr 11/23/23 15:56 Temperature 36.8 C Heart Rate 92 Respiratory 18 Rate Blood Pressure 127/66 O2 Saturation 100 Oxygen O2 Source Room air - Labs Labs: Laboratory Tests 03/09/23 16:05 Urine Color YELLOW Urine Clarity CLEAR Urine pH 5.5 Ur Specific [place] >=1.030 H Urine Protein NEGATIVE Urine Glucose (UA) NEGATIVE Urine Ketones NEGATIVE Urine Occult Blood SMALL H Urine Nitrite NEGATIVE Urine Bilirubin NEGATIVE Urine Urobilinogen 0.2 (NORMAL) Ur Leukocyte Esterase NEGATIVE Urine RBC 6-10 H Urine WBC 0-3 Ur Squamous Epith Cells RARE Squamous Urine Bacteria Rare Ur Microscopic Review INDICATED Urine Culture Comments NOT INDICATED Urine HCG, Qual NEGATIVE PD Medical Decision Making - ED course ED course: 47-year-old woman with presents with vaginal plane during her menses. On examination she is nontender abdominally but does have evidence of cervicitis on pelvic exam. test negative. Recent ultrasound reviewed. Urinalysis with small blood and negative test. Administered Rocephin and Doxy for cervicitis Departure - Departure Disposition: 01 Home, Self Care Clinical Impression: Cervicitis Condition: Good Record reviewed to determine appropriate education?: Yes Prescriptions: Doxycycline [Vibramycin] 100 mg PO BID #14 tablet Comments: It appears today that you have cervicitis, inflammation of the cervix. We are treating this with antibiotics and you can certainly take ibuprofen as needed for the pain. Follow-up with the produce department manager in about a week as scheduled. Return for new or worsening symptoms. Forms: PCP List
[2023-03-09 16:17] LABS: BILIRUBIN,URINE NEGATIVE (NEGATIVE); GLUCOSE, URINE (UA) NEGATIVE (NEGATIVE); KETONES,URINE (UA) NEGATIVE (NEGATIVE); LEUKOCYTE ESTERASE, URINE NEGATIVE (NEGATIVE); NITRITE,URINE NEGATIVE (NEGATIVE); OCCULT BLOOD,URINE SMALL (NEGATIVE); PH,URINE 5.5 PH (5.0-7.5); PROTEIN,URINE NEGATIVE (NEGATIVE); UROBILINOGEN,URINE 0.2 (NORMAL) E.U./dL (NORMAL)
[2023-03-09 16:19] LABS: CLARITY,URINE CLEAR (CLEAR); HCG UR QUAL NEGATIVE
[2023-03-09 16:28] LABS: BACTERIA,URINE Rare /HPF (None Seen); SQUAMOUS EPITHELIAL CELL,UR RARE Squamous (<= Few); WBC,URINE 0-3 /HPF (0-5)
[2023-03-09] MEDS ORDERED: DOXYCYCLINE 100 MG TABLET PO STA (16:28)
[2023-03-09] MEDS ORDERED: cefTRIAXone 500 MG VIAL IM STA (16:28)
[2023-03-09] MEDS ORDERED: LIDOCAINE 1% 2 ML VIAL MC ONE (16:28)
[2023-03-09 19:38] LABS: CHLAMYDIA TRACHOMATIS DNA NEGATIVE (NEGATIVE); NEISSERIA GONORRHOEAE DNA NEGATIVE (NEGATIVE); TRICHOMONAS VAGINALIS DNA NEGATIVE (NEGATIVE)
== END 2023-03-09 16:39 | disposition home or self-care (01) ==
LOC: ED 15:50
DX: N72 Inflammatory disease of cervix uteri (principal); E03.9 Hypothyroidism, unspecified; Z79.899 Other long term (current) drug therapy
CPT/HCPCS: 81001; 81025; 87491; 87591; 87661; 96372; 99283; A9270; 81003; 87086

== ENCOUNTER 2023-04-03 08:00 | Outpatient (CLI) | payer MEDICAID | END 2023-04-03 23:59 | disposition home or self-care (01) | LOC: LAB 08:00 | PROVIDERS: ATTEND Nurse Practitioner | DX: R30.0 Dysuria (principal) | CPT/HCPCS: 81599; 87109 ==

== ENCOUNTER 2023-04-07 18:40 | Emergency (ER) | payer MEDICAID ==
[2023-04-07 18:54] VITALS: O2SAT 100
[2023-04-07] MEDS ORDERED: KETOROLAC 15 MG/ML VIAL IVP STA (19:17)
--- NOTE | 2023-04-07 19:25 | ED Physician Documentation ---
History of Present Illness - Stated complaint Stated Complaint: BACK PX,SOB,FATIGUE - Chief complaint Chief Complaint: General - History obtained from History obtained from: Patient - Additonal information Additional information: 47-year-old female presents for body aches, fatigue, subjective shortness of breath for the last week. Patient states that 1 week ago she underwent endometrial biopsy for abnormal bleeding, but she does not know the results yet. Review of Systems Constitutional: reports: Myalgias, Fatigue. denies: Fever, Chills Eyes: denies: Loss of vision, Decreased vision, Photophobia Respiratory: reports: Dyspnea. denies: Cough, Wheezing GI: denies: Abdominal Pain, Nausea, Vomiting Musculoskeletal: denies: Neck pain, Back pain, Extremity pain PD PAST MEDICAL HISTORY - Past Medical History Past Medical History: Yes Cardiovascular: None Respiratory: None Neuro: None Endocrine/Autoimmune: HyPOthyroidism GI: GI bleed, Chronic constipation ASSESSMENT EXPERT: None : None HEENT: None Psych: None Musculoskeletal: None, Other Derm: None - Past Surgical History Past Surgical History: Yes General: Cholecystectomy Ortho: Spine surgery /ASSESSMENT EXPERT: Other - Present Medications Home Medications: Ambulatory Orders Medication Instructions Recorded Confirmed Levothyroxine [Synthroid] 50 mcg PO DAILY 03/19/20 10/24/21 dexAMETHasone [Decadron] 4 mg PO DAILY #5 tablet 06/10/22 methocarbamoL [Robaxin] 500 mg PO Q6H PRN #20 tablet 06/10/22 valACYclovir [Valtrex] 1,000 mg PO TID 5 Days #30 tablet 06/10/22 Doxycycline [Vibramycin] 100 mg PO BID #14 tablet 03/09/23 - Allergies Allergies/Adverse Reactions: Allergies Allergy/AdvReac Type Severity Reaction Status Date / Time paroxetine [From Paxil] Allergy Severe Anaphylaxis Verified 04/07/23 18:45 - Social History Does the pt smoke?: No Smoking Status: Never smoker Does the pt drink ETOH?: No Does the pt have substance abuse?: Yes - Immunizations Immunizations are current?: Yes - POLST Patient has POLST: No PD ED PE NORMAL - Vitals Vital signs reviewed: Yes - General General: Alert and oriented X 3, No acute distress, Well developed/nourished - HEENT HEENT: Atraumatic - Neck Neck: Supple, no meningeal sign, No bony TTP - Cardiac Cardiac: RRR, Strong equal pulses - Respiratory Respiratory: No respiratory distress, Clear bilaterally - Abdomen Abdomen: Soft, Non tender, Non distended - Back Back: No CVA TTP, No spinal TTP - Derm Derm: Normal color, Warm and dry, No rash - Extremities Extremities: No deformity, No tenderness to palpate, Normal ROM s pain, No edema - Neuro Neuro: Alert and oriented X 3, 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, No motor deficit, Normal speech - Psych Psych: Normal mood, Normal affect Results - Vitals Vitals: Oxygen O2 Source Room air - Labs Labs: Laboratory Tests 04/07/23 04/07/23 04/07/23 19:29 19:29 19:49 WBC 4.5 L RBC 4.27 Hgb 13.1 Hct 39.1 MCV 91.6 MCH 30.7 MCHC 33.5 RDW 11.7 L Plt Count 203 MPV 9.9 Neut # (Auto) 2.3 Lymph # (Auto) 1.7 [place] # (Auto) 0.4 Eos # (Auto) 0.1 Baso # (Auto) 0.0 Absolute Nucleated RBC 0.00 Nucleated RBC % 0.0 Sodium 139 Potassium 4.1 Chloride 104 Carbon Dioxide 27 Anion Gap 8.0 BUN 9 Creatinine 0.6 Estimated GFR (MDRD) 108 Glucose 89 Calcium 9.2 Total Bilirubin 0.6 AST 17 ALT 21 Alkaline Phosphatase 52 Total Protein 6.8 Albumin 4.3 Globulin 2.5 Albumin/Globulin Ratio 1.7 Urine Color Urine Clarity Urine pH Ur Specific [place] Urine Protein Urine Glucose (UA) Urine Ketones Urine Occult Blood Urine Nitrite Urine Bilirubin Urine Urobilinogen Ur Leukocyte Esterase Ur Microscopic Review Urine Culture Comments Nasal Adenovirus (PCR) NOT DETECTED Nasal B. parapertussis DNA (PCR) NOT DETECTED Nasal Coronavir 229E PCR NOT DETECTED Nasal Coronavir HKU1 PCR NOT DETECTED Nasal Coronavir NL63 PCR NOT DETECTED Nasal Coronavir OC43 PCR NOT DETECTED Nasal Enterovir/Rhinovir PCR NOT DETECTED Nasal Influenza B PCR NOT DETECTED Nasal Influenza A PCR NOT DETECTED Nasal Parainfluen 1 PCR NOT DETECTED Nasal Parainfluen 2 PCR NOT DETECTED Nasal Parainfluen 3 PCR NOT DETECTED Nasal Parainfluen 4 PCR NOT DETECTED Nasal RSV (PCR) NOT DETECTED Nasal B.pertussis DNA PCR NOT DETECTED Nasal C.pneumoniae (PCR) NOT DETECTED Rigoberto Human Metapneumo PCR NOT DETECTED Nasal M.pneumoniae (PCR) NOT DETECTED Nasal SARS-CoV-2 (PCR) NOT DETECTED 04/07/23 19:49 WBC RBC Hgb Hct MCV MCH MCHC RDW Plt Count MPV Neut # (Auto) Lymph # (Auto) [place] # (Auto) Eos # (Auto) Baso # (Auto) Absolute Nucleated RBC Nucleated RBC % Sodium Potassium Chloride Carbon Dioxide Anion Gap BUN Creatinine Estimated GFR (MDRD) Glucose Calcium Total Bilirubin AST ALT Alkaline Phosphatase Total Protein Albumin Globulin Albumin/Globulin Ratio Urine Color YELLOW Urine Clarity CLEAR Urine pH 6.5 Ur Specific [place] <=1.005 Urine Protein NEGATIVE Urine Glucose (UA) NEGATIVE Urine Ketones NEGATIVE Urine Occult Blood TRACE-INTA Urine Nitrite NEGATIVE Urine Bilirubin NEGATIVE Urine Urobilinogen 0.2 (NORMAL) Ur Leukocyte Esterase NEGATIVE Ur Microscopic Review NOT INDICATED Urine Culture Comments NOT INDICATED Nasal Adenovirus (PCR) Nasal B. parapertussis DNA (PCR) Nasal Coronavir 229E PCR Nasal Coronavir HKU1 PCR Nasal Coronavir NL63 PCR Nasal Coronavir OC43 PCR Nasal Enterovir/Rhinovir PCR Nasal Influenza B PCR Nasal Influenza A PCR Nasal Parainfluen 1 PCR Nasal Parainfluen 2 PCR Nasal Parainfluen 3 PCR Nasal Parainfluen 4 PCR Nasal RSV (PCR) Nasal B.pertussis DNA PCR Nasal C.pneumoniae (PCR) Rigoberto Human Metapneumo PCR Nasal M.pneumoniae (PCR) Nasal SARS-CoV-2 (PCR) PD Medical Decision Making - ED course Complexity details: reviewed old records, reviewed results, re-evaluated patient, considered differential, d/w patient ED course: No medications taken at home for symptoms. Well-appearing patient with generalized symptoms since endometrial biopsy. Patient's initial check-in heart rate 107, however when resting comfortably in ED bed pulse rate is 85 and normal sinus rhythm. Saturating 100% on room air, speaking in complete sentences without dyspnea. Lungs are clear to auscultation bilaterally with no wheezing, rales, rhonchi. Question if viral component of symptoms due to the diffuse nature of her myalgias, will order respiratory panel. Laboratory work is reviewed, unremarkable. Patient is not anemic, kidney functions normal, no urinary tract infection. Vitals have remained stable throughout patient's stay in department, no change in room oxygen saturation. Patient informed of lab results, she is relieved to know her labs look normal and will follow-up with her CODE MACHINE OPERATOR for her biopsy results when they become available. ED return precautions discussed at bedside. Departure - Departure Disposition: 01 Home, Self Care Clinical Impression: Fatigue, Body aches Condition: Stable Instructions: ED Muscle Aching, ED Acute Pain [facility] Forms: PCP List Discharge Date/Time: 04/07/23 21:10
[2023-04-07 19:35] LABS: BASOPHILS % (AUTO) 0.4 %; EOSINOPHILS # (AUTO) 0.1 10^3/uL (0.0-0.7); EOSINOPHILS % (AUTO) 2.9 %; HCT - HEMATOCRIT 39.1 % (37.0-47.0); HGB - HEMOGLOBIN 13.1 g/dL (12.0-16.0); LYMPHOCYTES # (AUTO) 1.7 10^3/uL (1.5-3.5); LYMPHOCYTES % (AUTO) 37.6 %; MEAN CORPUSCULAR HEMOGLOBIN 30.7 pg (27.0-31.0); MEAN CORPUSCULAR HGB CONC 33.5 g/dL (32.0-36.0); MEAN CORPUSCULAR VOLUME 91.6 fL (81.0-99.0); MEAN PLATELET VOLUME 9.9 fL (7.9-10.8); MONOCYTES # (AUTO) 0.4 10^3/uL (0.0-1.0); MONOCYTES % (AUTO) 8.9 %; NEUTROPHILS # (AUTO) 2.3 10^3/uL (1.5-6.6); NEUTROPHILS % (AUTO) 50.2 %; PLT - PLATELET COUNT 203 10^3/uL (130-450); RED BLOOD COUNT 4.27 10^6/uL (4.20-5.40); RED CELL DISTRIBUTION WIDTH 11.7 % (12.0-15.0); WHITE BLOOD COUNT 4.5 x10^3/uL (4.8-10.8)
[2023-04-07 19:53] LABS: ALBUMIN 4.3 g/dL (3.2-5.5); ALBUMIN/GLOBULIN RATIO 1.7 (1.0-2.2); BILIRUBIN,TOTAL 0.6 mg/dL (0.2-1.0); CALCIUM 9.2 mg/dL (8.5-10.3); CREATININE 0.6 mg/dL (0.6-1.3); POTASSIUM 4.1 mmol/L (3.5-4.5); TOTAL PROTEIN 6.8 g/dL (6.4-8.9)
[2023-04-07 19:58] LABS: BILIRUBIN,URINE NEGATIVE (NEGATIVE); GLUCOSE, URINE (UA) NEGATIVE (NEGATIVE); KETONES,URINE (UA) NEGATIVE (NEGATIVE); LEUKOCYTE ESTERASE, URINE NEGATIVE (NEGATIVE); NITRITE,URINE NEGATIVE (NEGATIVE); OCCULT BLOOD,URINE TRACE-INTA (NEGATIVE); PH,URINE 6.5 PH (5.0-7.5); PROTEIN,URINE NEGATIVE (NEGATIVE); UROBILINOGEN,URINE 0.2 (NORMAL) E.U./dL (NORMAL)
[2023-04-07 20:04] LABS: CLARITY,URINE CLEAR (CLEAR)
[2023-04-07 20:46] VITALS: BP 116/66
[2023-04-07 20:53] LABS: B. PARAPERTUSSIS- RESP PCR PAN NOT DETECTED; B. PERTUSSIS- RESP PCR PANEL NOT DETECTED; C. PNEUMONIAE- RESP PCR PANEL NOT DETECTED; CORONAVIRUS 229E-RESP PCR NOT DETECTED; CORONAVIRUS HKU1-RESP PCR NOT DETECTED; CORONAVIRUS NL63-RESP PCR NOT DETECTED; CORONAVIRUS OC43-RESP PCR NOT DETECTED; HUMAN METAPNEUMOVIRUS NOT DETECTED; INFLUENZA A- RESP PCR PANEL NOT DETECTED; INFLUENZA B - RESP PCR PANEL NOT DETECTED; M. PNEUMONIAE- RESP PCR PANEL NOT DETECTED; PARAINFLUENZA VIRUS 1 NOT DETECTED; PARAINFLUENZA VIRUS 2 NOT DETECTED; PARAINFLUENZA VIRUS 3 NOT DETECTED; PARAINFLUENZA VIRUS 4 NOT DETECTED; RHINOVIRUS/ENTEROVIRUS NOT DETECTED; RSV- RESP PCR PANEL NOT DETECTED; SARS-CoV-2 -RESP PCR PANEL NOT DETECTED
== END 2023-04-07 21:10 | disposition home or self-care (01) ==
LOC: ED 18:40
DX: M79.10 Myalgia, unspecified site (principal); R53.83 Other fatigue
CPT/HCPCS: 36415; 80053; 81001; 81003; 85025; 87086; 87633; 93005; 96374; 99283